=== PATIENT | male | born 1950 | race Caucasian/White ===

== ENCOUNTER 2021-06-26 15:29 | Emergency (ER) | payer BC, SELFPAY ==
[2021-06-26 15:39] VITALS: BP 144/76; PULSE 70; RESP 18; TEMP 36.9; O2SAT 99
--- NOTE | 2021-06-26 15:45 | ED.SKABFB ---
HPI - Skin/Abscess/Foreign Bdy General Chief complaint: Skin/Abscess/Foreign Body Stated complaint: Cuts Lt Leg Time Seen by Provider: 06/26/21 15:40 Source: patient, RN notes reviewed and old records reviewed Mode of arrival: ambulatory Limitations: no limitations History of Present Illness HPI narrative: 70-year-old male presents to the [facility] with a scabbed over red warm area to the anterior portion of his left patel. Patient states he was doing yard work when he scraped his patel on his mower. States the injury happened 2 days ago on Tuesday. States that he cleaned it with warm soapy water and poured peroxide over it. Woke up this morning it was red, warm and swollen. Patient has a history of diabetes. Unsure of last tetanus, per medical record August 26, 2015. Patient reports his sugars have been in the low 100s. Has a history of diabetes, high cholesterol, hypertension. MD complaint: lesion Related Data Home Medications Medication Instructions Recorded Confirmed blood sugar diagnostic #10 each 07/25/19 chlorthalidone 12.5 mg PO DAILY 06/26/21 06/26/21 fenofibrate 160 mg PO DAILY 06/26/21 06/26/21 glyburide 10 mg PO DAILY 06/26/21 06/26/21 linagliptin [Tradjenta] 5 mg PO DAILY 06/26/21 06/26/21 metformin 1,000 mg PO BID 06/26/21 06/26/21 Allergies Allergy/AdvReac Type Severity Reaction Status Date / Time No Known Allergies Allergy Verified 06/26/21 16:07 Review of Systems Review of Systems: All systems reviewed & are unremarkable except as noted in HPI and below Constitutional: Constitutional: Reports no additional constitutional complaints, Denies chills and Denies fever(s) Eyes: Eyes: Reports no additional eye complaints Cardiovascular: Cardiovascular: Reports no additional cardiovascular complaints Respiratory: Respiratory: Reports no additional respiratory complaints Musculoskeletal: Musculoskeletal: Reports no additional musculoskeletal complaints Integumentary/Breasts: Skin/Breast: Reports as per HPI and Reports erythema Neurologic: Reports system reviewed and no additional complaints, except as documented Psychiatric: Psychiatric: Reports no additional psychiatric complaints Allergic/Immunologic: Allergic/Immunologic: Reports no additional allergic/immunologic complaints PMFSH Past Medical History Medical History (Updated 06/26/21 @ 19:03 by Aisha Herr) DM neuro manif type II Essential (primary) hypertension Peripheral polyneuropathy Pure hypercholesterolemia Type 2 diabetes mellitus with hyperglycemia Family History Family History Sibling Patient's sister is in good health Patient's brother is in good health Family history of diabetes mellitus in first degree relative Social History Social History Smoking packs per day: 0.5 Smoking cigarettes per day: 10.0 Years smoked: 50 Smoking pack-years: 25.00 Smoking status: Current every day smoker Tobacco type: cigarettes Second hand tobacco smoke exposure: No Alcohol intake: current Drinks per week: 7 Substance use: never Substance use type: does not use Gender identity (if verbalized by the patient): Male Comments At the time of my signature, I reviewed and agree with the nursing past medical, surgical, social, and family history. There is no relevant family history pertinent to the patient complaint. Exam Const: General: healthy appearing, no acute distress and alert Nutritional Appearance: well nourished Orientation/consciousness: patient oriented x3 Limitations: no limitations HENMT: Head: normal to inspection Ears: external ears normal Eyes: Pupils: Equal, round and reactive pupils present Neck: Neck: normal visual inspection, no lymphadenopathy and no meningeal signs Chest: Chest palpation & inspection: normal inspection of the chest Resp: Effort & Inspection: normal respiratory effor
[2021-06-26] MEDS: TETANUS,DIPHTHERIA,AC PERTUSSIS ADULT (0.5 ML) BOOSTRIX IM (16:05)
== END 2021-06-26 16:25 | disposition home or self-care (01) ==
PROVIDERS: Emergency Provider Nurse Practitioner; PCP Family Medicine
DX: L03.116 Cellulitis of left lower limb (principal); Z23 Encounter for immunization; F17.210 Nicotine dependence, cigarettes, uncomplicated; I10 Essential (primary) hypertension; E11.42 Type 2 diabetes mellitus with diabetic polyneuropathy; E78.00 Pure hypercholesterolemia, unspecified
CPT/HCPCS: 90471; 90715; 99213; G0463

== ENCOUNTER 2021-12-18 16:33 | Outpatient (CLI) | payer BC, SELFPAY ==
--- NOTE | ~2021-12-18 | MR_ITS ---
EXAMINATION: MR lumbar spine wo con DATE: 12/18/2021 17:48 INDICATION: Spinal stenosis, lumbar region without neurogenic claudication. TECHNIQUE: Magnetic resonance imaging (MRI) of the lumbar spine was performed without intravenous con trast. Sequences included sagittal T2-weighted FSE, sagittal T2-weighted FS FSE, sagittal T1-weighted FSE, and axial T2-weighted FSE. COMPARISON: Lumbar spine MRI 08/19/2017 FINDINGS: There is 5 degrees dextrocurvature of thoracolumbar spine. There is kyphosis of upper lumba r spine. There is 3 mm retrolisthesis of L2 on L3. There is mild chronic anterior wedging of L1 verte bral body. There are Schmorl's nodes at most levels. There is mildly decreased disc height at L1-L2, severely decreased disc height at L2-L3, and moderately decreased disc height at L4-L5 and L5-S1 with endplate remodeling. The distal spinal cord signal intensity is normal. The conus medullaris is at T 12-L1. The following disc levels are specifically discussed: L1-L2: The disc is bulging and has an annular fissure. There is mild bilateral facet joint osteoarthr itis. There is mild left neural foraminal stenosis. There is mild central canal stenosis. L2-L3: The disc is bulging as an annular fissure. There is mild bilateral facet joint osteoarthritis. There is mild right and moderate left neural foraminal stenosis. There is mild central canal stenosi s. L3-L4: The disc is bulging and has an annular fissure. There is severe bilateral facet joint osteoart hritis. There is hypertrophy of the ligamentum flavum. There is moderate bilateral neural foraminal s tenosis. There is moderate central canal stenosis. L4-L5: The disc is bulging and has an annular fissure. There is severe bilateral facet joint osteoart hritis. There is moderate bilateral neural foraminal stenosis. There is mild central canal stenosis. L5-S1: The disc is bulging and has an annular fissure. There is severe right and moderate left facet joint osteoarthritis. There is moderate bilateral neural foraminal stenosis. There is mild central ca nal stenosis. IMPRESSION: 1. Severe lumbar spondylosis, worsened from 08/19/2017. Reviewed, dictated and finalized at location A.
== END 2021-12-18 16:34 | disposition home or self-care (01) ==
PROVIDERS: PCP Family Medicine; Visit Provider Family Medicine
DX: M48.061 Spinal stenosis, lumbar region without neurogenic claudication (principal); M47.816 Spondylosis without myelopathy or radiculopathy, lumbar region
CPT/HCPCS: 72148

== ENCOUNTER 2022-01-27 01:10 | Day surgery (SDC) | payer BC, SELFPAY ==
[2022-01-15 13:54] VITALS: BMI 28.5
--- NOTE | 2022-01-26 17:22 | PM.HPGS ---
History of Present Illness History of Present Illness Consent: Risks, benefits, and alternatives have been discussed and questions answered. Patient agrees to proceed with procedure. Chief complaint: hx of colon polyps Narrative: Jaskaran Smith is a 71 year old male With a history of colon polyps he had 7 polyps removed about 5 years ago. According to the report, the endoscopist was not able to remove all the polyps that he found due to the patient coughing. Subsequently he had another procedure elsewhere with removal of additional polyps. Review of Systems Review of Systems: All systems reviewed & are unremarkable except as noted in HPI and below PMFSH Past Medical History Medical History DM neuro manif type II Essential (primary) hypertension Peripheral polyneuropathy Pure hypercholesterolemia Type 2 diabetes mellitus with hyperglycemia Family History Family History Sibling Patient's sister is in good health Patient's brother is in good health Family history of diabetes mellitus in first degree relative Social History Social History Social History: Smoking packs per day: 0.5 Smoking cigarettes per day: 10.0 Years smoked: 40 Smoking pack-years: 20.00 Smoking status: Current every day smoker Tobacco type: cigarettes Second hand tobacco smoke exposure: No Alcohol intake: current Drinks per week: 7 Substance use: never Substance use type: does not use Living arrangements: with family Gender identity (if verbalized by the patient): Male Sexual Orientation (if Verbalized by the Patient): Straight or Heterosexual Meds Home Medications and Allergies Home Medications Medication Instructions Recorded Confirmed Type blood sugar diagnostic #10 ea 07/25/19 01/27/22 History quinapril 40 mg tablet (Accupril) 40 mg PO DAILY #90 tabs 10/31/20 01/27/22 Rx glyburide 5 mg tablet 10 mg PO DAILY 06/26/21 01/27/22 History metformin 1,000 mg tablet 1,000 mg PO BID #180 tabs 07/21/21 01/27/22 Rx atorvastatin 20 mg tablet (Lipitor) 20 mg PO DAILY #90 tabs 10/28/21 01/27/22 Rx amlodipine 10 mg tablet See Rx Instructions .Route 12/21/21 01/27/22 Rx .COMPLEX #90 tabs chlorthalidone 25 mg tablet See Rx Instructions .Route 12/21/21 01/27/22 Rx .COMPLEX #45 tabs empagliflozin 25 mg tablet See Rx Instructions .Route 12/21/21 01/27/22 Rx (Jardiance) .COMPLEX #90 tabs fenofibrate 160 mg tablet See Rx Instructions .Route 12/21/21 01/27/22 Rx .COMPLEX #90 tabs linagliptin 5 mg tablet (Tradjenta) 5 mg PO DAILY #90 tabs 12/21/21 01/27/22 Rx Allergies Allergy/AdvReac Type Severity Reaction Status Date / Time No Known Allergies Allergy Verified 01/27/22 07:27 Exam Resp: Auscultation: clear to auscultation bilaterally Cardio: Rate: regular rate Rhythm: regular rhythm GI: GI Palp: Yes Soft to palpation and No Tenderness to palpation present (GI) Assessment and Plan Assessment and plan (1) Colon cancer screening: Code(s): Z12.11 - Encounter for screening for malignant neoplasm of colon Status: Acute Assessment and Plan: Colonoscopy with possible biopsy or polypectomy or cautery or injection of substances.
[2022-01-27 07:29] VITALS: BP 137/85; PULSE 64; RESP 18; TEMP 36.4; O2SAT 97
[2022-01-27 07:29] LABS: Glucose Point of Care 193 mg/dl (65-105)
[2022-01-27] MEDS: LACTATED RINGERS 1,000 ML 150 ML IV CONT (07:37)
--- NOTE | 2022-01-27 08:10 | WPDANESEPPF ---
Anes - Initial Pre Proc Eval Procedure: Operation Date: 01/27/22 08:30 Proposed Procedures p Screening Colonoscopy - Perez Mari MD Date/Time: 01/27/22 08:10 Surgeon: Perez Mari MD Pre Op Diagnosis: hx of colon polyps Patient Data Age: 71 Gender: M Height: 1.83 m Weight: 94.8 kg Last Vital Signs Temp 97.6 F 01/27/22 07:29 Pulse 64 01/27/22 07:29 Resp 18 01/27/22 07:29 BP 137/85 01/27/22 07:29 Pulse Ox 97 01/27/22 07:29 O2 Del Method Room Air 01/27/22 07:29 Allergies Allergy/AdvReac Type Severity Reaction Status Date / Time No Known Allergies Allergy Verified 01/27/22 07:27 Home Medications Medication Instructions Recorded Confirmed Type blood sugar diagnostic #10 ea 07/25/19 01/27/22 History quinapril 40 mg tablet (Accupril) 40 mg PO DAILY #90 tabs 10/31/20 01/27/22 Rx glyburide 5 mg tablet 10 mg PO DAILY 06/26/21 01/27/22 History metformin 1,000 mg tablet 1,000 mg PO BID #180 tabs 07/21/21 01/27/22 Rx atorvastatin 20 mg tablet (Lipitor) 20 mg PO DAILY #90 tabs 10/28/21 01/27/22 Rx amlodipine 10 mg tablet See Rx Instructions .Route 12/21/21 01/27/22 Rx .COMPLEX #90 tabs chlorthalidone 25 mg tablet See Rx Instructions .Route 12/21/21 01/27/22 Rx .COMPLEX #45 tabs empagliflozin 25 mg tablet See Rx Instructions .Route 12/21/21 01/27/22 Rx (Jardiance) .COMPLEX #90 tabs fenofibrate 160 mg tablet See Rx Instructions .Route 12/21/21 01/27/22 Rx .COMPLEX #90 tabs linagliptin 5 mg tablet (Tradjenta) 5 mg PO DAILY #90 tabs 12/21/21 01/27/22 Rx Laboratory Tests 01/27/22 07:24 POC Capillary Glucose 193 mg/dl H mg/dl (65-105) Patient hx anesthesia problems: none Family hx anesthesia problems: none Results Review: All pre-operative results and documents have been reviewed as part of the pre-operative evaluation. [facility] Past Medical History Medical History DM neuro manif type II Essential (primary) hypertension Peripheral polyneuropathy Pure hypercholesterolemia Type 2 diabetes mellitus with hyperglycemia Family History Family History Sibling Patient's sister is in good health Patient's brother is in good health Family history of diabetes mellitus in first degree relative Social History Social History Social History: Smoking packs per day: 0.5 Smoking cigarettes per day: 10.0 Years smoked: 40 Smoking pack-years: 20.00 Smoking status: Current every day smoker Tobacco type: cigarettes Second hand tobacco smoke exposure: No Alcohol intake: current Drinks per week: 7 Substance use: never Substance use type: does not use Living arrangements: with family Gender identity (if verbalized by the patient): Male Sexual Orientation (if Verbalized by the Patient): Straight or Heterosexual Anes - Eval Final PreProcedure Day of Procedure 01/27/22 08:10 Patient weight: normal Heart: regular rate and rhythm Lungs: clear to auscultation Airway: Mallampati scale class II Neurological: alert and oriented Last oral intake: >/= 8 hours ASA classification: III Emergent: no Anesthetic plan: proceed Anesthesia type and monitoring: general GIVS and standard monitoring Results Review: All pre-operative results and documents have been reviewed as part of the pre-operative evaluation. Informed Consent: The patient's anesthetic plan and its attendant risks and benefits were discussed with the patient/family/POA. Questions were solicited and answers provided to the satisfaction of the patient/family/POA.
[2022-01-27 08:52] VITALS: BP 130/65; PULSE 62; RESP 20; O2SAT 97
[2022-01-27 09:02] VITALS: BP 133/64; PULSE 64; RESP 20; O2SAT 98
[2022-01-27 09:12] VITALS: BP 113/93; PULSE 62; RESP 21; O2SAT 97
== END 2022-01-27 09:35 | disposition home or self-care (01) ==
PROVIDERS: PCP Family Medicine; Visit Provider Internal Medicine Gastroenterology
PROC: 0DJD8ZZ Inspection of Lower Intestinal Tract, Via Natural or Artificial Opening Endoscopic (ICD-10-PCS; CPT 45378; principal; 2022-01-27 08:30)
DX: Z12.11 Encounter for screening for malignant neoplasm of colon (principal); D12.2 Benign neoplasm of ascending colon; D12.4 Benign neoplasm of descending colon; D12.5 Benign neoplasm of sigmoid colon; K57.30 Diverticulosis of large intestine without perforation or abscess without bleeding; I10 Essential (primary) hypertension; E11.42 Type 2 diabetes mellitus with diabetic polyneuropathy; E78.00 Pure hypercholesterolemia, unspecified; F17.210 Nicotine dependence, cigarettes, uncomplicated
CPT/HCPCS: 45385; 82948; 88305; J2704; J7120

== ENCOUNTER 2022-11-10 13:45 | Outpatient (CLI) | payer BC, SELFPAY ==
--- NOTE | ~2022-11-10 | XR_ITS ---
MODIFIED ESOPHAGRAM HISTORY: Acute respiratory failure with hypoxia. Dysphagia post recent neck surgery. TECHNIQUE: Modified barium esophagram was performed on 11/10/2022. I administered fluoroscopy and perfo rmed the exam with speech pathologist. Patient was seated for lateral fluoroscopic imaging for inges tion of thin liquids, pudding, solids and quantified amounts, followed by thin liquids in uncontrolle d amounts. This was recorded on tape. A single fluoroscopic spot image was also recorded. The DAP for this procedure was 0.669 Gycm2. The amount of fluoroscopy time used during this procedure was 1.1 mi nutes. FINDINGS: C5 corpectomy with interbody device and anterior plate and screw fixation extending from C4 through C 6. Oral stage: Adequate function. Pharyngeal stage: Pharyngeal dysphagia including reduced laryngeal elevation and adduction, reduced t ongue base retraction and pharyngeal squeeze. There is significant residue along the pharyngeal wall, the vallecula and piriform sinuses. Laryngeal penetration and significant aspiration noted with both thick and thin consistencies. Cervical/esophageal stage: Adequate function. IMPRESSION: Pharyngeal dysphagia with significant laryngeal penetration and aspiration with thin and thick consistencies. Please correlate with speech pathologist findings and specific feeding recommen dations. Reviewed, dictated and finalized at location A. TATION OPERATOR HELPER IMPRESSION: Pharyngeal dysphagia with significant laryngeal penetration and asp iration with thin and thick consistencies. Please correlate with speech pathol ogist findings and specific feeding recommendations.
--- NOTE | 2022-11-10 15:15 | REHSTMBS ---
Assessment and note entered by Melanie Ibarra WEB MARKETING MANAGER Modified Barium Swallow Evaluation Feeding Type Recommended Non-Oral ST Clinical Summary MODIFIED BARIUM SWALLOW STUDY (MBS) This patient was seen for an outpatient Modified Barium Swallow study at the request of his physician. Patient reports a cervical surgery on C4 through C6 with removal of C5 with another material in place of C5 to remove build- up against the spine. He reports that he has not been able to consume food or drink orally since then. He states that he feels he is able to swallow but he is not eating now because he failed a MBS study at [facility] on 10/20/22 and was told he can no longer consume food and drink. He reports he has had Speech Therapy with a speech pathologist through his local home health agency but she stopped coming out to the house several weeks ago. He does recognize that liquid goes down the wrong pipe, assumed that he has tried it since then. During this assessment, patient was presented with one presentation of 1/2 teaspoon thin liquid and two small bites of pudding, both consistencies contributed to significant pharyngeal pooling resulting in need for multiple swallows to clear however this was not effective in clearing residual. He also exhibited significant penetration with aspiration on the small amount of thin liquid and the slightly larger amount of pudding material. Testing was terminated after two significant episodes of penetration/aspiration were observed. The following impairments were noted: Oral Stage: None. Pharyngeal Stage: *Reduced base of tongue retraction contributing to poor epiglottal inversion resulting in significant pharyngeal residue and poor airway closure. *Reduced laryngeal elevation as demonstrated by poor epiglottal inversion contributing to penetration/aspiration and significant pharyngeal residue possibly due to reduced upper esophageal sphincter (UES) opening.
--- NOTE | 2022-11-11 12:05 | REHSTMBS ---
Assessment and note entered by Melanie Ibarra PLANT EQUIPMENT ENGINEER Modified Barium Swallow Evaluation Feeding Type Recommended Non-Oral ST Clinical Summary MODIFIED BARIUM SWALLOW STUDY (MBS) This patient was seen for an outpatient Modified Barium Swallow study at the request of his physician. Patient reports a cervical surgery on C4 through C6 with removal of C5 with another material in place of C5 to remove build- up against the spine. He reports that he has not been able to consume food or drink orally since then. He states that he feels he is able to swallow but he is not eating now because he failed a MBS study at [facility] on 10/20/22 and was told he can no longer consume food and drink. He reports he has had Speech Therapy with a speech pathologist through his local home health agency but she stopped coming out to the house several weeks ago. He does recognize that liquid goes down the wrong pipe, assumed that he has tried it since then. During this assessment, patient was presented with one presentation of 1/2 teaspoon thin liquid and two small bites of pudding, both consistencies contributed to significant pharyngeal pooling resulting in need for multiple swallows to clear however this was not effective in clearing residual. He also exhibited significant penetration with aspiration on the small amount of thin liquid and the slightly larger amount of pudding material. Testing was terminated after two significant episodes of penetration/aspiration were observed. The following impairments were noted: Oral Stage: None. Pharyngeal Stage: *Reduced base of tongue retraction contributing to poor epiglottal inversion resulting in significant pharyngeal residue and poor airway closure. *Reduced laryngeal elevation as demonstrated by poor epiglottal inversion contributing to penetration/aspiration and significant pharyngeal residue possibly due to reduced upper esophageal sphincter (UES) opening.
== END 2022-11-10 13:46 | disposition home or self-care (01) ==
PROVIDERS: PCP Family Medicine
DX: J96.01 Acute respiratory failure with hypoxia (principal); G95.9 Disease of spinal cord, unspecified
CPT/HCPCS: 92611

== ENCOUNTER 2025-06-19 02:15 | Day surgery (SDC) | payer MEDICARE, SELFPAY ==
[2025-06-10 13:36] VITALS: BMI 25.1
[2025-06-19 07:53] VITALS: BP 134/87; PULSE 80; RESP 18; TEMP 36.4; O2SAT 94
[2025-06-19] MEDS: LACTATED RINGERS 1,000 ML 150 ML IV CONT (08:08)
--- NOTE | 2025-06-19 08:16 | ECG_ITS ---
Test Date: 2025-06-19 08:32:13 Measurements Intervals Roland Rate: 62 P: 55 WI: 213 QRS: -65 QRSD: 134 T: 72 QT: 410 QTc: 419 Interpretive Statements SINUS RHYTHM WITH FIRST DEGREE AV BLOCK WITH ATRIAL AND VENTRICULAR PREMATURE COMPLEXES INTRAVENTRICULAR CONDUCTION DELAY POOR R WAVE PROGRESSION BASELINE ARTIFACT- I, II, III, AVR, AVL, AVF, V1-V3 ABNORMAL ECG No previous ECG available for comparison Electronically Signed On 06-19-2025 09:10:54 CDT by Tigre Swift D.O.
--- NOTE | 2025-06-19 08:18 | P.PNAN_ITS ---
Anes - Initial Pre Proc Eval Procedure: Operation Date: 06/19/25 09:00 Proposed Procedures p Screening Colonoscopy - Paul Mary MD Date/Time: 06/19/25 08:18 Surgeon: Paul Mary MD Pre Op Diagnosis: Personal history of colon polyps, unspecified Patient Data Age: 74 Gender: M Height: 1.83 m Weight: 87.1 kg Last Vital Signs Temp 97.6 F 06/19/25 07:53 Pulse 80 06/19/25 07:53 Resp 18 06/19/25 07:53 BP 134/87 06/19/25 07:53 Pulse Ox 94 06/19/25 07:53 O2 Del Method Room Air 06/19/25 07:53 Allergies Allergy/AdvReac Type Severity Reaction Status Date / Time No Known Allergies Allergy Verified 06/19/25 07:51 Home Medications ?Medication ?Instructions ?Recorded ?Confirmed ?Type blood sugar diagnostic #10 ea 07/25/19 01/30/25 His tory atorvastatin 20 mg tablet See Rx Instructions .Route 0 09/27/24 06/19/25 Rx .COMPLEX #90 tabs metformin 1,000 mg tablet See Rx Instructions .Route 0 09/27/24 06/19/25 Rx .COMPLEX #180 tabs amlodipine 10 mg tablet See Rx Instructions .Route 0 11/14/24 06/19/25 Rx .COMPLEX #90 tabs empagliflozin 25 mg tablet See Rx Instructions .Route 11/14/24 06/19/25 Rx (Jardiance) .COMPLEX #90 tabs fenofibrate 160 mg tablet See Rx Instructions .Route 0 11/14/24 06/19/25 Rx .COMPLEX #90 tabs sitagliptin phosphate 100 mg 100 mg PO DAILY #90 tabs 11/14/24 06/19/25 Rx tablet (Januvia) chlorthalidone 25 mg tablet See Rx Instructions .Route 05/10/25 06/19/25 Rx .COMPLEX #45 tabs glyburide 5 mg tablet 2.5 mg PO DAILY 06/10/25 History Laboratory Tests 06/19/25 07:59 POC Capillary Glucose 156 H mg/dl (65-105) Patient hx anesthesia problems: none Family hx anesthesia problems: none Results Review: All pre-operative results and documents have been reviewed as part of the pre- operative evaluation. [facility] Past Medical History Medical History (Updated 06/19/25 @ 08:20 by Eduardo Rockwell Jr., CRNA) Over weight Smoking history History of colon polyps Smoking Afib At high risk for aspiration DM neuro manif type II Essential (primary) hypertension Peripheral polyneuropathy Pure hypercholesterolemia Type 2 diabetes mellitus with hyperglycemia Family History Family History Sibling Patient's sister is in good health Patient's brother is in good health Family history of diabetes mellitus in first degree relative Social History Social History Social History: Smoking packs per day: 0.5 Smoking cigarettes per day: 10.0 Years smoked: 40 Smoking pack-years: 20.00 Smoking status: Current every day smoker Tobacco type: cigarettes Second hand tobacco smoke exposure: No Alcohol intake: current Drinks per week: 7 Substance use: never Substance use type: does not use Living arrangements: with family Occupation/Education: occupation Gender identity (if verbalized by the patient): Male Sexual Orientation (if Verbalized by the Patient): Straight or Heterosexual Anes - Eval Final PreProcedure Day of Procedure 06/19/25 08:18 Patient weight: overweight Heart: irregular rhythm Lungs: clear to auscultation Airway: Mallampati scale class II Last oral intake: >/= 8 hours ASA classification: III Emergent: no Anesthetic plan: proceed Anesthesia type and monitoring: general GIVS and standard monitoring Results Review: All pre-operative results and documents have been reviewed as part of the pre- operative evaluation. Informed Consent: The patient's anesthetic plan and its attendant risks and benefits were discussed with the patient/family/POA. Questions were solicited and answers provided to the satisfaction of the patient/family/POA.
--- NOTE | 2025-06-19 08:28 | SUR.PREOP ---
Per pulse ox, HR fluctuates from 30-100s. Per palpation, HR 50s with some long pauses. Rhythm strip printed and given to Dr. Garza. New orders for 12 Lead EKG received. Pt states no cardiac hx. Will continue with 12 Lead EKG.
--- NOTE | 2025-06-19 08:38 | ECG_ITS ---
Test Date: 2025-06-19 08:41:25 Measurements Intervals [place] Rate: 75 P: 62 OH: 213 QRS: -67 QRSD: 128 T: 66 QT: 414 QTc: 463 Interpretive Statements SINUS RHYTHM WITH FIRST DEGREE AV BLOCK WITH OCCASIONAL VENTRICULAR PREMATURE COMPLEXES LEFT ANTERIOR FASCICULAR BLOCK BASELINE ARTIFACT- I, II, III, AVR, AVL, AVF ABNORMAL ECG Compared to ECG 06/19/2025 08:32:13 NO SIGNIFICANT CHANGE Electronically Signed On 06-19-2025 09:11:43 CDT by Tigre Swift D.O.
--- NOTE | 2025-06-19 08:47 | SUR.PREOP ---
Irregular heart rate reported in pre-op. Patients heart rate ranging from 30-100 on vitals monitor, and at 50 with long pauses manually. Notified Dr. Garza. Per Dr. Garza obtain 12 lead EKG. EKG obtained and transmitted. Dr. Garza to evaluate.
--- NOTE | 2025-06-19 09:08 | PM.IMHP ---
H&P: HPI History of Present Illness Date/Time: 06/19/25 09:08 Chief Complaint: History of colon polyps Narrative: The patient has a history of colonic polyps, the last colonoscopy was more than 5 years ago. Review of Systems Review of Systems: All systems reviewed & are unremarkable except as noted in HPI and below PMFSH Past Medical History Medical History (Updated 06/19/25 @ 08:20 by Eduardo Rockwell Jr., CRNA) Over weight Smoking history History of colon polyps Smoking Afib At high risk for aspiration DM neuro manif type II Essential (primary) hypertension Peripheral polyneuropathy Pure hypercholesterolemia Type 2 diabetes mellitus with hyperglycemia Family History Family History Sibling Patient's sister is in good health Patient's brother is in good health Family history of diabetes mellitus in first degree relative Social History Social History Social History: Smoking packs per day: 0.5 Smoking cigarettes per day: 10.0 Years smoked: 40 Smoking pack-years: 20.00 Smoking status: Current every day smoker Tobacco type: cigarettes Second hand tobacco smoke exposure: No Alcohol intake: current Drinks per week: 7 Substance use: never Substance use type: does not use Living arrangements: with family Occupation/Education: occupation Gender identity (if verbalized by the patient): Male Sexual Orientation (if Verbalized by the Patient): Straight or Heterosexual Meds Home Medications and Allergies Home Medications ?Medication ?Instructions ?Recorded ?Confirmed ?Type blood sugar diagnostic #10 ea 07/25/19 01/30/25 History atorvastatin 20 mg tablet See Rx Instructions .Route 09/27/24 06/19/25 Rx .COMPLEX #90 tabs metformin 1,000 mg tablet See Rx Instructions .Route 09/27/24 06/19/25 Rx .COMPLEX #180 tabs amlodipine 10 mg tablet See Rx Instructions .Route 11/14/24 06/19/25 Rx .COMPLEX #90 tabs empagliflozin 25 mg tablet See Rx Instructions .Route 11/14/24 06/19/25 Rx (Jardiance) .COMPLEX #90 tabs fenofibrate 160 mg tablet See Rx Instructions .Route 11/14/24 06/19/25 Rx .COMPLEX #90 tabs sitagliptin phosphate 100 mg 100 mg PO DAILY #90 tabs 11/14/24 06/19/25 Rx tablet (Januvia) chlorthalidone 25 mg tablet See Rx Instructions .Route 05/10/25 06/19/25 Rx .COMPLEX #45 tabs glyburide 5 mg tablet 2.5 mg PO DAILY 06/10/25 06/19/25 History Allergies Allergy/AdvReac Type Severity Reaction Status Date / Time No Known Allergies Allergy Verified 06/19/25 07:51 Vital Signs Vital Signs - 24 hr 06/19/25 07:53 Temperature 97.6 F Pulse Rate 80 Respiratory Rate 18 Blood Pressure 134/87 Pulse Oximetry 94 Oxygen Delivery Room Air Exam Const: General: cooperative and healthy appearing Resp: Effort & Inspection: normal respiratory effort and able to speak in complete sentences Auscultation: clear to auscultation bilaterally Cardio: Rate: regular rate Rhythm: regular rhythm GI: Inspection: normal to inspection GI Palp: No No hepatosplenomegaly present Auscultation: normal bowel sounds Rectal Exam: deferred Skin: General skin exam: normal color Psych: Appearance: grossly normal Mental Status: mental status grossly normal Assessment and Plan Assessment and plan (1) History of colon polyps: Code(s): Z86.010 - Personal history of colon polyps Status: Acute Assessment and Plan: The patient is deemed a good candidate for the procedure. Consent signed. Will proceed.
--- NOTE | 2025-06-19 09:41 | S_PTH ---
PATIENT: Jaskaran Smith LOC: [facility] U#:[id number] AGE/SX: 74/M ROOM: RE06/19/[address]: Paul Mary MD : 1950 BED: DIS: 06/19/2025 SPEC #: [id number] RECD: 06/19/25 10:42 STATUS: NICOLAS REQ #: [id number] ROCHELLE: 06/19/25 09:[address]: Paul Mary DEPT: [facility] Surgical RECD BY: Zuleyka Welch ENTERED: 06/19/25 10:43 SP TYPE: Surgical OTHR DR: José Vogel MD Tissues: A - Colon Polypectomy B - Colon Biopsy Procedures: Hematoxylin and Eosin Stain Gross and Microscopic Level 4 MLH1 MSH2 MSH6 PMS2
[2025-06-19 09:43] VITALS: BP 106/67; PULSE 67; RESP 21; O2SAT 93
[2025-06-19 09:53] VITALS: BP 113/75; PULSE 63; RESP 22; O2SAT 98
== END 2025-06-19 10:22 | disposition home or self-care (01) ==
PROVIDERS: PCP Family Medicine; Referring Provider Family Medicine; Visit Provider Internal Medicine Gastroenterology
PROC: 0DJD8ZZ Inspection of Lower Intestinal Tract, Via Natural or Artificial Opening Endoscopic (ICD-10-PCS; CPT 45378; principal; 2025-06-19 09:00)
DX: Z12.11 Encounter for screening for malignant neoplasm of colon (principal); C18.0 Malignant neoplasm of cecum; D12.5 Benign neoplasm of sigmoid colon; I10 Essential (primary) hypertension; E11.65 Type 2 diabetes mellitus with hyperglycemia; E78.00 Pure hypercholesterolemia, unspecified; I48.91 Unspecified atrial fibrillation; F17.210 Nicotine dependence, cigarettes, uncomplicated; G62.89 Other specified polyneuropathies; Z79.84 Long term (current) use of oral hypoglycemic drugs
CPT/HCPCS: 45380; 45381; 45385; 82948; 88305; 88342; 93005; J2003; J2704; J7120

== ENCOUNTER 2025-06-20 13:06 | Outpatient (CLI) | payer MEDICARE, SELFPAY ==
--- NOTE | ~2025-06-20 | CT_ITS ---
EXAMINATION: CT chest abdomen pelvis w con DATE: 06/20/2025 13:42 INDICATION: Personal history of colon polyps TECHNIQUE: Computed tomography (CT) of the chest, abdomen, and pelvis was performed with 100 mL Omnipaque-350 intravenous contrast. Automated exposure control and iterative reconstruction technique were employed. The dose-length product was 928.26 mGy-cm. COMPARISON: CT abdomen and pelvis dated 09/15/2011 FINDINGS: CHEST CT: Mild emphysema. There are scattered peripheral mild reticular and tree-in-bud opacities in both lungs. No pleural effusion or pneumothorax. Heart size is normal. Atherosclerotic coronary artery calcifications. No pericardial effusion. Thoracic aorta normal in caliber with no dissection. No pathologically enlarged thoracic lymphadenopathy. Moderate to severe thoracic spondylosis. Incompletely visualized instrumentation at C6 for likely for cervical anterior spinal fusion. ABDOMEN/PELVIS CT: Diffuse hepatic steatosis with more focal fat at the ligamentum teres. Gallbladder, spleen, pancreas and bilateral adrenal glands are normal. 2.4 similar exophytic cyst at the lower pole of the right kidney. Subcentimeter cyst at the upper pole the left kidney. Bladder is normal. Bowels including the a ppendix are normal. There is calcified atherosclerosis of the aorta and many of the other arteries. No free intraperitoneal gas or fluid. No pathologically enlarged abdominal or pelvic lymphadenopathy. Moderate to severe lumbar spondylosis. IMPRESSION: 1. Mild emphysema with peripheral reticular and tree-in-bud opacities throughout both lungs which could represent infectious bronchiolitis or respiratory bronchiolitis interstitial lung disease. 2. No acute intra-abdominal/pelvic process. 3. Diffuse hepatic steatosis. Reviewed, dictated and finalized at location A. IMPRESSION: 1. Mild emphysema with peripheral reticular and tree-in-bud opacities throughou t both lungs which could represent infectious bronchiolitis or respiratory bron chiolitis interstitial lung disease. 2. No acute intra-abdominal/pelvic process. 3. Diffuse hepatic steatosis.
[2025-06-20 13:33] LABS: Estimated Glomerular Filt Rate > 60
--- OUTSIDE RECORDS SUMMARY | 2025-06-20 14:58 | XMS_ITS | Clinical Summary ---
Author Organization [facility] Address [facility] [place] [address] Care Team Providers Care Cooperative Education Coordinator Name Role Phone José Vogel MD Primary Care Provider [phone] Active Problems Problem Noted Date Diagnosed Date Cervical myelopathy 11/29/2022 Social History Tobacco Use Types Packs/Day Years Used Date Smoking Tobacco: Never Assessed Sex and Gender Information Value Date Recorded Sex Assigned at Not on file Legal Sex Male 5:38 PM CDT Gender Identity Not on file Sexual Orientation Not on file Plan of Treatment Health Maintenance Due Date Last Done Comments Hepatitis C 1966 Zoster Vaccines (1 of 2) 1998 Pneumococcal Vaccine: 50+ Years (2 of 2 - PPSV23) 06/10/2022 06/10/2021 RSV Immunization or 60+ Years (1 - 1-dose 75+ series) 2023 COVID-19 Vaccine ( season) 2025 07/22/2021, 11/23/2020, 11/02/2020 Influenza Adult (#1) 2025 06/12/2019, 07/08/2018, 07/07/2018, Additional history exists DTaP, Tdap and Td Vaccines (3 - Td or Tdap) 06/26/2031 06/26/2021, 08/26/2015 Meningococcal B Vaccine Aged Out No l onger eligible based on patient's age to complete this topic Meningococcal Vaccine Aged Out No juanita frida eligible based on patient's age to complete this topic RSV Immunizations Under 20 Months Aged Out No longer eligible based on patient's age to complete this topic Insurance [facility] Care Teams Cooperative Education Coordinator Relationship Specialty Start Date End Date José Vogel MD [address] [place] [address] PCP - General FAMILY PRACTICE 11/19/22
--- OUTSIDE RECORDS SUMMARY | 2025-06-20 14:58 | XMS_ITS | Clinical Summary ---
Author Organization [facility] Address [address] [address] Care Team Providers Care Manager Company Name Role Phone José Vogel MD Primary Care Provider Allergies No known active allergies Medications BetimoL 0.5 % ophthalmic solutionIndicat ions:glaucoma Administer 1 drop into both eyes 2 (two) times a day 2 Active chlorthalidone 25 mg tabletIndicatio ns:hypertension Administer per tube 1 tablet (25 mg total) every morning 3 Active glyBURIDE (DIABETA) 5 mg tabletIndicatio ns:type 2 diabetes mellitus Administer per tube 1 tablet (5 mg total) daily before breakfast 3 Active Jardiance 25 mg tabletIndicatio ns:type 2 diabetes mellitus Administer per tube 1 tablet (25 mg total) every morning 3 Active metFORMIN (GLUCOPHAGE) 1,000 mg tabletIndicatio ns:type 2 diabetes mellitus Administer per tube 1 tablet (1,000 mg total) 2 (two) times a day 3 Active Tradjenta 5 mg tabletIndicatio ns:type 2 diabetes mellitus Administer per tube 1 tablet (5 mg total) every morning 3 Active amLODIPine (NORVASC) 10 mg tabletIndicatio ns:hypertension Administer per tube 1 tablet (10 mg total) daily 3 Active atorvastatin (LIPITOR) 20 mg tabletIndicatio ns:hyperlipidem ia Administer per tube 1 tablet (20 mg total) every morning 3 Active fenofibrate (TRIGLIDE) 160 mg tabletIndicatio ns:hyperlipidem ia Administer per tube 1 tablet (160 mg total) every morning 3 Active acetaminophen 500 mg capsule Administer per tube 2 capsules (1,000 mg total) every 6 (six) hours as needed for pain 30 tablet 3 Active Additional Information Patient not taking.Reported on 11/17/2022 Active Problems Problem Noted Date Diagnosed Date Surgery, elective 10/05/2022 Cervical myelopathy 07/15/2022 Overview (07/15/2022): Added automatically from request for surgery [id number] Osteoarthritis 03/04/2022 Neuropathy 01/25/2019 Polyp of colon 11/18/2016 Immunizations Immunization Administration Dates Next Due Influenza, Quadrivalent, Ursula l Culture-based MDCK, Preservative Free, Antibiotic Free, Intramuscular 06/12/2019 Influenza, Quadrivalent, Spl it, Preservative Free, Intramuscular 06/21/2015 Influenza, Trivalent, High D ose, Split, Preservative Free, Intramuscular 07/08/2018,07/07/2018,07/17/2016 Influenza, Trivalent, IM (MDV) 06/11/2013 Pneumococcal Conjugate PCV 13 06/10/2021 Tdap 06/26/2021,08/26/2015 Surgical History Surgery Date Site/Laterality Comments SPINE SURGERY IR G TUBE PLACEMENT PERCUTANEOUS 10/20/2022 N/A Medical History Medical History Date Comments Type 2 diabetes mellitus Hypertension Osteoarthritis Family History Medical History Relation Name Comments Diabetes Mother Hypertension Mother Diabetes Sister Early Sister Relation Name Status Comments Mother Sister Social History Tobacco Use Types Packs/Day Years Used Date Smoking Tobacco: Some Days Cigarettes 0.5 50 Smokeless Tobacco: Never Tobacco Cessation:Ready to Q uit: Not Asked; Counseling Given: Yes AUDIT-C Answer Date Recorded Q1: How often do you have a drink containing alcohol? 4 or more times a week 03/09/2023 Q2: How many drinks containi ng alcohol do you have on a typical day when you are drinking? 1 or 2 Q3: How often do you have si x or more drinks on one occasion? Never 03/09/2023 Sex and Gender Information Value Date Recorded Sex Assigned at Not on file Legal Sex Male 6:45 AM CDT Gender Identity Not on file Sexual Orientation Not on file Obstetrics History Last Filed Vital Signs Vital Sign Reading Time Taken Comments Blood Pressure 118/69 11/17/2022 1:31 PM CDT Pulse 75 11/17/2022 1:31 PM CDT Temperature 36.1 C (97 F) 10/21/2022 7:55 AM MAGNETIC TESTER Respiratory Rate 18 10/22/2022 8:10 AM MAGNETIC TESTER Oxygen Saturation 92% 10/22/2022 12:13 PM MAGNETIC TESTER Inhaled Oxygen Concentration - - Weight 86.2 kg (190 lb) 03/09/2023 2:35 PM CDT Height 180.3 cm (5' 11) 03/09/2023 2:35 PM CDT Body Mass Index 26.5 03/09/2023 2:35 PM CDT Plan of Treatment Health Maintenance Due Date Last Done Comments Depression Screening 1950 Hepatitis C Screening 1950 Hepatitis B Screening 1966 Zoster Vaccine (1 of 2) 1998 Abdominal Aortic Aneurysm (A AA) Screen 2013 Well Visit 65+ 2013 Pneumococcal vaccine 65+ (2 of 2 - PPSV23, PCV20, or PCV21) 08/05/2021 06/10/2021 Fall Risk Assessment 10/22/2023 10/22/2022 Covid-19 Vaccine (4 - 2024-2 6 season) 2025 07/22/2021, 11/23/2020, 11/02/2020 Influenza Vaccine (#1) 2025 9, 07/08/2018, 07/07/2018, Additional history exists DTaP/Tdap/Td Vaccine (3 - Td or Tdap) 06/26/2031 06/26/2021, 08/26/2015 Colon Cancer Screening-CT Colonography Discontinued 12/07/2016 Colon Cancer Screening-Colonoscopy Discontinued 12/07/2016 Colon Cancer Screening-DNA Stool Discontinued 12/08/19 17 Colon Cancer Screening-FIT Discontinued 12/07/2016 Colon Cancer Screening-FOBT Discontinued 12/07/2016 Colon Cancer Screening-Sigmoidoscopy Discontinued 12/07/2016 Colorectal Cancer Screening Discontinued Medical Devices Implanted Type Area Production Planner Scheduler Device Identifier Shelf Expiration Date Model / Serial / Lot [place] Spine Cage Spinal [id number] Mmm Radha 0d 26-38mm Set Screw [id number] - [id number] Implanted:Qty: 1 on 10/04/2022 by Bismark De La Garza MD at [facility] N/A: Spine Cervical [place] Spine 07/04/2025 [id number] / / [id number] Dwight Spine [place] 42mm 2 Level Spine Cervical Plate Bone Nonsterile [id number] - [id number] Implanted:Qty: 1 on 10/04/2022 by Bismark De La Garza MD at [facility] N/A: Spine Cervical [place] Spine [id number] / / Dwight Spine [place] 4mm 18mm Self Start Variable Angle Spine Cervical Screw [id number] - [id number] Implanted:Qty: 4 on 10/04/2022 by Bismark De La Garza MD at [facility] N/A: Spine Cervical Dwight Spine [id number] / / Procedures Procedure Name Priority Date/Time Associated Diagnosis Comments COLONOSCOPY REPORT 12/07/2016 from Last 3 Months or Most Recently Relevant to Health Maintenance Results * COLONOSCOPY REPORT (12/07/2016) Anatomical Region Laterality Modality Other Narrative 12/07/2016 Ordered by an unspecified provider. us Historical Provider GI PROCEDURE ORDERABLES F inal Result from Last 3 Months or Most Recently Relevant to Health Maintenance Insurance [employer] OOS MEDICARE [facility] ACCESS MEDICARE [employer] OOS Member Subscriber Plan / Payer (Ef fective 2008-Present) Name:Jaskaran Smith Relation to Subscriber:Self Name:Jaskaran Smith Payer ID:[id number] (NAIC) Type: ALLIANCE Address: [address] [place] [id number] MEDICARE Advance Directives For more information, please contact: [phone] Documents on File Type Date Recorded Patient Appliquer Expl anation ADVANCE DIRECTIVE 10/04/2022 9:20 AM Power of Training And Development Specialist-Medical * Full Code (Latest Code Status on File) Date Activated Date Inactivated Comments 10/04/2022 9:18 PM 10/22/2022 9:09 PM Care Teams Manager Company Relationship Specialty Start Date End Date José Vogel MD [address] [facility] [address] [place] [id number] PCP - General 12/07/16
== END 2025-06-20 13:07 | disposition home or self-care (01) ==
PROVIDERS: PCP Family Medicine; Visit Provider Nurse Practitioner Family
DX: K63.89 Other specified diseases of intestine (principal); Z86.0100 Personal history of colon polyps, unspecified; K76.0 Fatty (change of) liver, not elsewhere classified
CPT/HCPCS: 71260; 74177; Q9967

== ENCOUNTER 2025-07-29 09:43 | Outpatient (CLI) | payer MEDICARE, SELFPAY ==
--- NOTE | ~2025-07-29 | NM_ITS ---
EXAMINATION: NM susan stress w perfusion DATE: 07/29/2025 13:02 INDICATION: Encounter for preprocedural cardiovascular examination TECHNIQUE: Rest images were obtained following intravenous administration of 10 mCi Tc99m tetrofosmin (Myoview). The patient was infused intravenously with Lexiscan (Regadenoson). Then, 30 mCi Tc99m tetrofosmin (Myoview) was administered intravenously, and stress images were obtained. Data was reconstr ucted into short axis and horizontal and vertical long axis SPECT images. Gated SPECT images were also obtained. COMPARISON: None. FINDINGS: There is a small mild perfusion defect on the rest images at the apical and apical septal segment which nearly normalizes at the apical segment on the gated stress images and which normalizes at the apex and nearly normalizes at the apical septal segment on the gated post stress images which would favor artifact over infarct. No reversible perfusion defect to suggest ischemia.. There is normal left ventricular chamber size, wall motion and ejection fraction. Left ventricular ejection fraction measures 53%. IMPRESSION: 1. Small region of decreased activity at the apical and apical septal segments on the rest images which normalizes apical segment nearly normalizes at the apical septal segment on the gated post stress imaging favoring artifact over infarct. No evident ischemia. 2. Left ventricular ejection fraction measuring >70%. Reviewed, dictated and finalized at location A. CUTTER IMPRESSION: 1. Small region of decreased activity at the apical and apical septal segments on the rest images which normalizes apical segment nearly normalizes at the api monica septal segment on the gated post stress imaging favoring artifact over infa rct. No evident ischemia. 2. Left ventricular ejection fraction measuring >70%.
--- NOTE | 2025-07-29 10:47 | EST_ITS ---
Patient Info Name: Jaskaran Smith Age: 74 years : 1950 Gender: Male Ht: 71 in Wt: 194 lbs BSA: 2.11 m2 HR: 55 bpm BP: 150 / 87 mmHg Exam Date: 07/29/2025 10:47 AM Patient Status: O Admit Date: 07/29/2025 Exam Type: CA stress susan w NM A regadenoson stress test was performed. Staff Referring Physician: Tigre Swift DO Attending Provider: Tigre Swift DO Exercise Technologist: Wendy Figueroa Exercise Physician: Tigre Swift DO Summary 1. 1. Negative lexiscan stress test for ischemic ST changes by ECG criteria. 2. 2. Baseline hypertension. 3. 3. Nuclear scan to follow and will be reported separately. Please correlate with it. 4. 4. Patient informed of the above results. Protocol: Lexiscan Stress ECG Details Stage: REST Duration (min): 0 min : 51 sec HR (bpm): 60 SBP (mmHg): 150 DBP (mmHg): 87 Stage: REST Duration (min): 7 min : 2 sec HR (bpm): 56 SBP (mmHg): 150 DBP (mmHg): 87 Stage: STAGE 1 Duration (min): 0 min : 59 sec HR (bpm): 72 SBP (mmHg): 144 DBP (mmHg): 85 Stage: RECOVERY Duration (min): 1 min : 0 sec HR (bpm): 74 SBP (mmHg): 144 DBP (mmHg): 85 Stage: RECOVERY Duration (min): 2 min : 0 sec HR (bpm): 74 SBP (mmHg): 144 DBP (mmHg): 85 Stage: RECOVERY Duration (min): 3 min : 0 sec HR (bpm): 69 SBP (mmHg): 134 DBP (mmHg): 81 Stage: RECOVERY Duration (min): 3 min : 1 sec HR (bpm): 70 SBP (mmHg): 134 DBP (mmHg): 81 Rest HR: 56 bpm Peak HR: 77 bpm Rest Sys BP: 150 mmHg Peak Sys BP: 144 mmHg Max Pred HR: 144 bpm % Max Pred HR: 53 % Target HR: 122 bpm Max RPP: 11,088 bpm*mmHg Termination Reason: Completed protocol Cardiac Symptoms: Shortness of breath Total Time: 1 min : 0 sec Rest Gleason BP: 87 mmHg Peak Gleason BP: 85 mmHg Total Dose: 0.4 mg Resting ECG Sinus bradycardia, IVCD, BRWP. Stress ECG No ST changes. Arrhythmias None. Report Signatures
--- OUTSIDE RECORDS SUMMARY | 2025-07-29 11:02 | XMS_ITS | Encounter Summary ---
Author Organization [facility] Address [address] [place] [address] Care Team Providers Care Food Consultant Name Role Phone José Vogel MD Primary Care Provider [phone] Encounter Details Date Type Department Care Team (Late st Contact Info) Description 04/22/2022 Lab Requisition [facility] [address] [facility] [facility] [place] [id number] Gianluca Arias MD [address] [facility] [place] [address] Social History Tobacco Use Types Packs/Day Years Used Date Smoking Tobacco: Never Assessed Sex and Gender Information Value Date Recorded Sex Assigned at Not on file Legal Sex Male 9:32 AM CDT Gender Identity Not on file Sexual Orientation Not on file documented as of this encounter Plan of Treatment Not on file documented as of this encounter Procedures Procedure Name Priority Date/Time Associated Diagnosis Comments DERMATOPATHOLOGY Routine 04/20/2022 3:33 AM CDT documented in this encounter Results * DERMATOPATHOLOGY (04/20/2022 3:33 AM CDT) Case Report Dermatopathology Report Case: [id number] Authorizing Provider: Gianluca Arias MD Collected: 04/20/2022 03:33 AM Ordering Location: [facility] Received: 04/22/2022 07:00 AM Pathologist: Veda Jacinto MD Specimen: Skin, right upper anglican 4:58 PM CDT DERMATOPATHOLOGY LABORATORY Final Diagnosis Specimen A. SKIN, right upper anglican: SEBORRHEIC KERATOSIS, INFLAMED (L82.0) EPIDERMOID CYST WITH EVIDENCE OF RUPTURE (L72.0) DERMAL FIBROSIS (L90.5) (see microscopic description) 2 4:58 PM CDT DERMATOPATHOLOGY LABORATORY at 1658 CDT Clinical History SK vs. SCCA. Path# [id number] 2 4:58 PM CDT DERMATOPATHOLOGY LABORATORY Gross Description Specimen A: Received is one formalin filled container labeled with the patient's name and designated right upper anglican. The specimen consists of a shave biopsy measuring [id number]. Jar 0. 2 4:58 PM CDT DERMATOPATHOLOGY LABORATORY Microscopic Description Specimen A. SKIN, right upper anglican: There is hyperkeratosis, parakeratosis, papillomatosis, and acanthosis of the epidermis. There is a lymphohistiocytic infiltrate within the papillary dermis that is focally lichenoid. Within the dermis, there is a space lined by epithelium that resembles normal epidermis and the infundibular portion of the hair follicle. Surrounding this is an infiltrate with neutrophils, histiocytes, and multinucleated giant cells. There is focal dermal fibrosis. 2 4:58 PM CDT DERMATOPATHOLOGY LABORATORY Disclaimer An external and internal positive and negative controls are appropriate for the histochemical, immunohistochemical and immunofluorescence stain(s) in this case (if any), except where stated explicitly. The performance characteristics of the stain(s) cited in this report were developed and its performance characteristic determined by the Dermatopathology Laboratory at [facility], directed by Dr. Lucretia Castelan. These tests need not be, and therefore are not, approved by the [place] Food and Drug Administration. The tests are used for clinical purposes. Billing Codes Specimen Charges Stain Charges 77175 1 2 4:58 PM CDT DERMATOPATHOLOGY LABORATORY Embedded Images 2 4:58 PM CDT DERMATOPATHOLOGY LABORATORY Pathology/Cytolo gy TISSUE SPECIMEN FROM SKIN / Unknown 04/20/2022 3:33 AM CDT 04/22/2022 7:00 AM CDT us Gianluca Arias MD LAB - PATHOLOGY/CYTOLOGY ORDER PAYAL Final Result DERMATOPATHOLOGY LABORATORY [facility] - Department of Dermatology [address], [address] [phone] documented in this encounter Visit Diagnoses Not on filedocumented in this encounter Care Teams Food Consultant Relationship Specialty Start Date End Date José Vogel MD [address] [place] [address] PCP - General 01/28/22 documented as of this encounter
--- OUTSIDE RECORDS SUMMARY | 2025-07-29 11:02 | XMS_ITS | Clinical Summary ---
Author Organization [facility] Address [facility] [address] Care Team Providers Care Airline Radio Operator Name Role Phone José Vogel MD Primary Care Provider [phone] Active Problems Problem Noted Date Diagnosed Date [...] Vaccine: 50+ Years (2 of 2 - PCV20 or PCV21) 06/10/2022 06/10/2021 RSV Immunization or 60+ Years (1 - 1-dose 75+ series) 2023 COVID-19 Vaccine ( - season) 2025 07/22/2021, 11/23/2020, 11/02/2020 Influenza Adult (#1) 2025 06/12/2019, 07/08/2018, 07/07/2018, Additional history exists DTaP, Tdap and Td Vaccines (3 - Td or Tdap) 06/26/2031 06/26/2021, 08/26/2015 Hepatitis A Vaccines Aged Out No long er eligible based on patient's age to complete this topic Meningococcal B Vaccine Aged Out No l onger eligible based on patient's age to complete this topic Meningococcal Vaccine Aged Out No juanita frida eligible based on patient's age to complete this topic RSV Immunizations Under 20 Months Aged Out No longer eligible based on patient's age to complete this topic Insurance [facility] Care Teams Airline Radio Operator Relationship Specialty Start Date End Date José Vogel MD [address] [place] [address] PCP - General FAMILY PRACTICE 11/19/22
--- OUTSIDE RECORDS SUMMARY | 2025-07-29 11:02 | XMS_ITS | Clinical Summary ---
Author Organization [facility] Address [address] [place] [address] Care Team Providers Care Supervising Bailiff Name Role Phone José Vogel MD Primary Care Provider [phone] Source Comments [facility],non-owned Affiliates and Associated Physician Practices is amultiple site organization consisting of ambulatory clinics and hospital sitesin [place], [place], [place] and [place]. This disclosure is being madepursuant to the Care Everywhere program and may not contain all information available regarding this patient. Last updated 18.[facility] Social History Tobacco Use Types Packs/Day Years Used Date Smoking Tobacco: Never Assessed Sex and Gender Information Value Date Recorded Sex Assigned at Not on file Legal Sex Male 9:32 AM CDT Gender Identity Not on file Sexual Orientation Not on file Plan of Treatment Health Maintenance Due Date Last Done Comments MEDICARE AWV 12 MONTHS 1950 HEPATITIS C SCREENING 09/08/1966 DTAP/TDAP/TD VACCINES (1 - Tdap) 1967 PNEUMOCOCCAL VACCINE 50+ (1 of 1 - PCV) 1998 ZOSTER VACCINE (1 of 2) 1998 Respiratory Syncytial Virus (RSV) Vaccine Pt: or over 60 yrs (1 - 1-dose 75+ series) 2023 DEPRESSION SCREENING 09/05/2024 COVID-19 VACCINE (1 - 2024- season) 2025 INFLUENZA VACCINE (#1) 2025 9, 07/08/2018, 07/07/2018, Additional history exists HEPATITIS B VACCINE Aged Out No longe r eligible based on patient's age to complete this topic HIB VACCINE Aged Out No longer eligi ble based on patient's age to complete this topic HPV VACCINE Aged Out No longer eligi ble based on patient's age to complete this topic MENINGOCOCCAL (Group B) VACCINE SHARED DECISION-MAKING Aged Out No longer eligible based on patient's age to complete this topic MENINGOCOCCAL GROUPS A/C/Y/W VACCINE Aged Out No longer eligible based on patient's age to complete this topic Insurance MEDICARE MEDICARE SUPPLEMENT PAYOR GENERIC Care Teams Supervising Bailiff Relationship Specialty Start Date End Date José Vogel MD [address] [place] [address] PCP - General 01/28/22
--- OUTSIDE RECORDS SUMMARY | 2025-07-29 11:02 | XMS_ITS | Clinical Summary ---
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 Oxygen Saturation 92% 10/22/2022 12:13 PM BLACK MILL 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 Inhaled Oxygen Concentration - - Weight 86.2 [...] Screening Discontinued Medical Devices Implanted Type Area Planetarium Sky Show Technician Device Identifier Shelf Expiration Date Model / Serial / Lot Dwight Spine Cage Spinal [id number] Mmm Radha 0d 26-38mm Set Screw [id number] - [id number] Implanted:Qty: 1 on 10/04/2022 by Bismark De La Garza MD at [facility] N/A: Spine Cervical [place] Spine 07/04/2025 [id number] / / [id number] Dwight Spine Union 42mm 2 Level Spine Cervical Plate Bone Nonsterile [id number] - [id number] Implanted:Qty: 1 on 10/04/2022 by Bismark De La Garza MD at [facility] N/A: Spine Cervical Dwight Spine [id number] / / Dwight Spine Union 4mm 18mm Self Start Variable Angle Spine Cervical Screw [id number] - [id number] Implanted:Qty: 4 on 10/04/2022 by Bismark De La Garza MD at [facility] N/A: Spine Cervical [place] Spine [id number] / / Procedures Procedure Name Priority Date/Time Associated Diagnosis Comments COLONOSCOPY REPORT 12/07/2016 from Last 3 Months or Most Recently Relevant to Health Maintenance Results * COLONOSCOPY REPORT (12/07/2016) Anatomical Region Laterality Modality Other Narrative 12/07/2016 Ordered by an unspecified provider. 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
== END 2025-07-29 09:44 | disposition home or self-care (01) ==
PROVIDERS: PCP Family Medicine; Visit Provider Internal Medicine Cardiovascular Disease
DX: Z01.810 Encounter for preprocedural cardiovascular examination (principal); I10 Essential (primary) hypertension
CPT/HCPCS: 78452; 93017; A9502; J2785

== ENCOUNTER 2025-08-12 09:18 | Outpatient (CLI) | payer MEDICARE, SELFPAY ==
[2025-08-12 10:58] LABS: Hematocrit 51.0 % (42.0-52.0); Hemoglobin 16.6 g/dL (14.0-18.0)
[2025-08-12 11:23] LABS: Anion Gap 6 mmol/L (4-12); Blood Urea Nitrogen 25 mg/dL (9-20); Calcium 9.6 mg/dL (8.4-10.2); Carbon Dioxide 32 mmol/L (22-30); Chloride 100 mmol/L (98-107); Estimated Glomerular Filt Rate > 60; Glucose 178 mg/dL (65-110); Potassium 4.0 mmol/L (3.4-5.0); Sodium 138 mmol/L (137-145)
[2025-08-12 11:54] LABS: Carcinoembryonic Antigen 1.4 ng/mL (0.0-3.0)
== END 2025-08-12 09:19 | disposition home or self-care (01) ==
PROVIDERS: Anesthesiology; PCP Family Medicine; Visit Provider Surgery
DX: Z01.818 Encounter for other preprocedural examination (principal); C18.0 Malignant neoplasm of cecum; E11.65 Type 2 diabetes mellitus with hyperglycemia
CPT/HCPCS: 36415; 80048; 82378; 85014; 85018; 86850; 86900; 86901

== ENCOUNTER 2025-08-23 08:40 | Inpatient (IN) | payer MEDICARE, SELFPAY ==
--- NOTE | 2025-08-12 09:58 | PC.NURSE ---
[facility] has started construction of its new state of the art ER which will open Spring 2026. With this, we anticipate parking may be a challenge for some our surgical patients and families. Parking spaces are limited but are available for all Surgical, obstetrics, and ER patients sharing this lot. If you arrive and find you are having a hard time finding a parking space, please note that we understand the challenges, please drive around the hospital and park near Hospital Entrance 1. When you enter this entrance, you can ask a volunteer to direct or take you back to the surgical waiting area to check in. We appreciate everyone?s understanding of these expected challenges while we build for your future. Report to the Outpatient Waiting Room, entrance under the green pavilion located off [address], at time _8:30 AM on date 08/23/25 . Planned Procedure Time: _10:30 AM .? Time changes happen often and if your time is changed the preop area will call you the afternoon before. - You and your visitor will be asked to self-screen and do not enter if you have any COVID symptoms. Please call surgeon if you need to reschedule. - A mask is optional within the hospital at this time. Patients may have clear liquids (water, carbonated beverages, clear teas, apple juice) until 3 hours prior to surgery( 7:30 AM) with a maximum of 20 ounces. - No food from midnight until time of surgery and no smoking, or chewing tobacco (or any form of nicotine). No chewing gum, candy or mints. Take only the following medications with a SIP of water on the morning of surgery: ___AMLODIPINE,EYE DROPS DO NOT STOP ANY OF YOUR OTHER PRESCRIPTION MEDICATIONS PRIOR TO SURGERY EXCEPT THE FOLLOWING Hold all vitamins and supplements for 3 days per anesthesiologist.LAST DOSE 08/19/25 Medications to discontinue per physician ____NONE Date to take last dose BOWEL PREP PER DR TOBAR ENSURE BUNDLE PACK PER DR TOBAR CHLORHEXIDINE CLEANSER DAY BEFORE SURGERY AND MORNING OF SURGERY Please no make-up, nail malaysian, hairspray, perfume, deodorant, or body powder the day of surgery.? No jewelry (including any body piercings) or valuables the day of surgery, leave them at home.? Please take a shower or bath the night before, or the morning of, surgery with an antibacterial soap.? Wear comfortable, loose fitting clothing.? Children are encouraged to wear pajamas. - Jewelry must be removed prior to entering the operating room.? Rings and piercings that are not removed may be cut off. - The hospital will not accept responsibility for valuables.? - Please leave all valuables, including medications, at home the day of surgery. If you are going home after surgery, a licensed meals on wheels driver must drive you home.? - NO public transportation without another adult if you receive anesthesia. - We recommend that an adult stay with you for 24 hours following discharge. - We also recommend that you do not drive, make important decision, drink alcoholic beverages, or take any drugs that were not prescribed by your health care provider for at least 24 hours after your discharge time. For Pediatric surgeries, we recommend two adults accompany the child home. Follow any additional instructions given to you from your surgeon. VERBAL AND WRITTEN instructions given to ____PATIENT and asked if any additional questions and then verbalized understanding. Patient advised to call surgeon office or pre surgery nurse liaison [phone] if any additional questions.
[2025-08-12 10:02] VITALS: BMI 27.3
[2025-08-12 10:40] VITALS: BP 132/66; PULSE 65; RESP 18; TEMP 36.6; O2SAT 97
[2025-08-23] VITALS (18 sets, daily range): BP systolic 117–143; BP diastolic 54–83; PULSE 61–73; RESP 17–26; TEMP 36.3–36.8; O2SAT 85–100; BMI 27.0
[2025-08-23] MEDS: ACETAMINOPHEN 500 MG TABLET 1000 MG PO ×2 (09:15→20:54)
[2025-08-23] MEDS: LACTATED RINGERS 1,000 ML 30 ML IV CONT ×2 (09:30→17:22)
[2025-08-23] MEDS: KETOROLAC 15 MG/ML VIAL (*BKC) IV PUSH (09:30)
[2025-08-23] MEDS: ALVIMOPAN 12 MG CAPSULE PO (10:01)
--- NOTE | 2025-08-23 10:59 | SUR.PREOP ---
patient was spoke to about delay with surgery. Patient understands. Bathroom and warm blankets offered.
--- NOTE | 2025-08-23 11:20 | PM.IMHP2 ---
H&P: HPI History of Present Illness Date/Time: 08/23/25 11:20 Chief Complaint: Right colon cecal adenocarcinoma Narrative: Mr. Smith returns to the office for recheck. He was seen two weeks ago after colonoscopy showed cecal adenocarcinoma. He is to be scheduled for robotic assisted right hemicolectomy once cardiac clearance is obtained. He was seen by Dr. Swift yesterday and is hopefully getting his stress done next week, but date has not been set. At his initial visit, he was noted to have a fungal rash in his bilateral groin crease. Was prescribed Nystatin, which he continues to use as instructed. Rash has improved significantly. Review of Systems Review of Systems: The remainder of the review of systems to include constitutional, HEENT, cardiovascular, respiratory, GI, , integumentary, musculoskeletal, endocrine, immunologic, hematologic, psychiatric, and neurologic are all negative except for which is mentioned above in the HPI. [facility] Past Medical History Medical History Adenocarcinoma of cecum Over weight Smoking history History of colon polyps Smoking Afib At high risk for aspiration DM neuro manif type II Essential (primary) hypertension Peripheral polyneuropathy Pure hypercholesterolemia Type 2 diabetes mellitus with hyperglycemia Surgical History Surgical History History of back surgery Multiple back surgeries. Family History Family History Sibling Patient's sister is in good health Patient's brother is in good health Family history of diabetes mellitus in first degree relative Social History Social History Social History: Smoking packs per day: 0.5 Smoking cigarettes per day: 10.0 Years smoked: 40 Smoking pack-years: 20.00 Smoking status: Current every day smoker Tobacco type: cigarettes Second hand tobacco smoke exposure: No Alcohol intake: current Drinks per week: 7 Substance use: never Substance use type: does not use Living arrangements: with family Occupation/Education: occupation Gender identity (if verbalized by the patient): Male Sexual Orientation (if Verbalized by the Patient): Straight or Heterosexual Spiritual care concerns: No Meds Home Medications and Allergies Home Medications ?Medication ?Instructions ?Recorded ?Confirmed ?Type blood sugar diagnostic #10 ea 07/25/19 07/18/25 History amlodipine 10 mg tablet See Rx Instructions .Route 11/14/24 08/23/25 Rx .COMPLEX #90 tabs empagliflozin 25 mg tablet See Rx Instructions .Route 11/14/24 08/12/25 Rx (Jardiance) .COMPLEX #90 tabs sitagliptin phosphate 100 mg 100 mg PO DAILY #90 tabs 11/14/24 08/12/25 Rx tablet (Januvia) chlorthalidone 25 mg tablet See Rx Instructions .Route 05/10/25 08/12/25 Rx .COMPLEX #45 tabs nystatin 100,000 unit/gram topical 1 applic topical BID #60 grams 07/02/25 08/12/25 Rx powder glyburide 5 mg tablet 5 mg PO DAILY #90 tabs 07/04/25 08/12/25 Rx ciprofloxacin HCl 500 mg tablet 500 mg PO .COMPLEX #1 tablet 07/31/25 08/12/25 Rx metronidazole 500 mg tablet 500 mg PO .COMPLEX #3 tabs 07/31/25 08/12/25 Rx cholecalciferol (vitamin D3) 50 2,000 unit PO DAILY 08/12/25 08/12/25 History mcg (2,000 unit) capsule timolol maleate 0.5 % eye drops 1 drp EACH EYE Q12H 08/12/25 08/23/25 History atorvastatin 20 mg tablet See Rx Instructions .Route 08/14/25 Rx .COMPLEX #90 tabs fenofibrate 160 mg tablet See Rx Instructions .Route 08/14/25 Rx .COMPLEX #90 tabs metformin 1,000 mg tablet See Rx Instructions .Route 08/14/25 Rx .COMPLEX #180 tabs Allergies Allergy/AdvReac Type Severity Reaction Status Date / Time No Known Allergies Allergy Verified 08/12/25 10:03 Vital Signs Vital Signs - 24 hr 08/23/25 09:58 Temperature 36.4 C L Pulse Rate 68 Blood Pressure 118/59 L Pulse Oximetry 100 Oxygen Delivery Room Air Exam Const: General: comfortable and no acute distress HENMT: Ears: TM's normal bilaterally Face/Nose/Sinus: Normal nares present Mouth: Yes moist mucous membranes Eyes: General: appearance normal, both eyes and all related structures Sclera: sclerae normal Pupils: Equal, round and reactive pupils present EOM: EOMs intact bilaterally Neck: Neck: supple and no JVD Resp: Effort & Inspection: normal respiratory effort Auscultation: clear to auscultation bilaterally Cardio: Rate: regular rate Rhythm: regular rhythm GI: GI Palp: Yes Soft to palpation, No Firmness to palpation present (GI), No Tenderness to palpation present (GI) and No Guarding due to palpation present (GI) Other: No evidence of any groin crease rashes. Skin: General skin exam: normal color and no rashes or lesions noted Neuro: General: gait normal Speech: normal speech Motor exam (neuro): 5/5 motor strength present throughout Sensory Exam: normal sensation Extrem: General: normal to inspection Psych: Mental Status: mental status grossly normal Affect: normal affect Assessment and Plan Assessment and plan (1) Adenocarcinoma of cecum: Code(s): C18.0 - Malignant neoplasm of cecum Status: Acute Assessment and Plan: Pt cleared from cardiology. Groin crease rash resolved. Proceed with robotic assisted laparoscopic right hemicolectomy, possible open today. Risks, benefits, indications, and expected outcomes were discussed in detail with the patient and/or family. They understand and I have answered all other questions. They wished to proceed with surgery as outlined above.
--- NOTE | 2025-08-23 11:27 | WPDHPUPDATE1 ---
History and Physical Update Update Date/Time: 08/23/25 11:27 History and Physical has been reviewed, including an updated exam of the patient. There are NO changes in the patient's condition. Risks, benefits, and alternatives have been discussed and questions answered. Patient agrees to proceed with procedure.
--- NOTE | 2025-08-23 11:40 | WPDANESEPPF ---
Anes - Initial Pre Proc Eval Procedure: Operation Date: 08/23/25 10:30 Proposed Procedures p Robotic Assisted Laparoscopic Right Hemicolectomy, Possible Open - Isaac Becerra MD Date/Time: 08/23/25 11:40 Surgeon: Isaac Becerra MD Pre Op Diagnosis: right colon/ cecal adenocarcinoma Patient Data Age: 74 Gender: M Height: 1.8 m Weight: 88 kg Last Vital Signs Temp 36.4 C L 08/23/25 09:58 Pulse 68 08/23/25 09:58 Resp 18 08/12/25 10:40 BP 118/59 L 08/23/25 09:58 Pulse Ox 100 08/23/25 09:58 O2 Del Method Room Air 08/23/25 09:58 Allergies Allergy/AdvReac Type Severity Reaction Status Date / Time No Known Allergies Allergy Verified 08/12/25 10:03 Home Medications ?Medication ?Instructions ?Recorded ?Confirmed ?Type blood sugar diagnostic #10 ea 07/25/19 07/18/25 History amlodipine 10 mg tablet See Rx Instructions .Route 11/14/24 08/23/25 Rx .COMPLEX #90 tabs empagliflozin 25 mg tablet See Rx Instructions .Route 11/14/24 08/12/25 Rx (Jardiance) .COMPLEX #90 tabs sitagliptin phosphate 100 mg 100 mg PO DAILY #90 tabs 11/14/24 08/12/25 Rx tablet (Januvia) chlorthalidone 25 mg tablet See Rx Instructions .Route 05/10/25 08/12/25 Rx .COMPLEX #45 tabs nystatin 100,000 unit/gram topical 1 applic topical BID #60 grams 07/02/25 08/12/25 Rx powder glyburide 5 mg tablet 5 mg PO DAILY #90 tabs 07/04/25 08/12/25 Rx ciprofloxacin HCl 500 mg tablet 500 mg PO .COMPLEX #1 tablet 07/31/25 08/12/25 Rx metronidazole 500 mg tablet 500 mg PO .COMPLEX #3 tabs 07/31/25 08/12/25 Rx cholecalciferol (vitamin D3) 50 2,000 unit PO DAILY 08/12/25 08/12/25 History mcg (2,000 unit) capsule timolol maleate 0.5 % eye drops 1 drp EACH EYE Q12H 08/12/25 08/23/25 History atorvastatin 20 mg tablet See Rx Instructions .Route 08/14/25 Rx .COMPLEX #90 tabs fenofibrate 160 mg tablet See Rx Instructions .Route 08/14/25 Rx .COMPLEX #90 tabs metformin 1,000 mg tablet See Rx Instructions .Route 08/14/25 Rx .COMPLEX #180 tabs Laboratory Tests 08/23/25 09:36 POC Capillary Glucose 197 H mg/dl (65-105) Patient hx anesthesia problems: none Family hx anesthesia problems: none Results Review: All pre-operative results and documents have been reviewed as part of the pre-operative evaluation. [facility] Past Medical History Medical History Adenocarcinoma of cecum Over weight Smoking history History of colon polyps Smoking Afib At high risk for aspiration DM neuro manif type II Essential (primary) hypertension Peripheral polyneuropathy Pure hypercholesterolemia Type 2 diabetes mellitus with hyperglycemia Surgical History Surgical History History of back surgery Multiple back surgeries. Family History Family History Sibling Patient's sister is in good health Patient's brother is in good health Family history of diabetes mellitus in first degree relative Social History Social History Social History: Smoking packs per day: 0.5 Smoking cigarettes per day: 10.0 Years smoked: 40 Smoking pack-years: 20.00 Smoking status: Current every day smoker Tobacco type: cigarettes Second hand tobacco smoke exposure: No Alcohol intake: current Drinks per week: 7 Substance use: never Substance use type: does not use Living arrangements: with family Occupation/Education: occupation Gender identity (if verbalized by the patient): Male Sexual Orientation (if Verbalized by the Patient): Straight or Heterosexual Spiritual care concerns: No Anes - Eval Final PreProcedure Day of Procedure 08/23/25 11:40 Patient weight: overweight Heart: regular rate and rhythm Lungs: clear to auscultation Airway: Mallampati scale class II Neurological: alert and oriented Last oral intake: >/= 8 hours ASA classification: III Emergent: no Anesthetic plan: proceed Anesthesia type and monitoring: general ETT and standard monitoring Results Review: All pre-operative results and documents have been reviewed as part of the pre-operative evaluation. Informed Consent: The patient's anesthetic plan and its attendant risks and benefits were discussed with the patient/family/POA. Questions were solicited and answers provided to the satisfaction of the patient/family/POA.
[2025-08-23] MEDS: ceFAZolin 2 GM in SODIUM CHLORIDE 0.9% IV 50 ML 100 ML IVPB (11:54)
[2025-08-23] MEDS: LIDO 1%/EPINEPHRINE 1:100,000 50 ML VIAL 30 ML INFILTRATE (11:54)
[2025-08-23] MEDS: metroNIDAZOLE 500 MG/ISO 100ML 500 MG/100 ML BAG 100 MG IVPB (11:54)
[2025-08-23] MEDS: INDOCYANINE GREEN 25 MG VIAL WITH DILUENT 3.75 MG IV PUSH (15:30)
--- NOTE | 2025-08-23 16:55 | S_PTH ---
PATIENT: Jaskaran Smith LOC: [id number] U#:[id number] AGE/SX: 74/M ROOM: 3 RE08/23/[address]: Xochilt Cano MD : 1950 BED: 2 DIS: 08/25/2025 SPEC #: [id number] RECD: 08/26/25 07:24 STATUS: NICOLAS REJordan #: [id number] ROCHELLE: 08/23/25 16:[address]: Isaac Becerra DEPT: [facility] Surgical RECD BY: Zuleyka Welch ENTERED: 08/26/25 07:25 SP TYPE: Surgical OTHR DR: José Vogel MD Tissues: A - Colon Segment Tumor Procedures: Hematoxylin and Eosin Stain Gross and Microscopic Level 6
[2025-08-23] MEDS: fentaNYL CITRATE INJ (*CRX) 100 MCG/2 ML VIAL 25 MCG IV PUSH ×2 (17:33→17:39)
[2025-08-23] MEDS: ALBUTEROL SULFATE NEB 2.5 MG/3 ML INH INHALATION (18:28)
[2025-08-23] MEDS: LACTATED RINGERS 1,000 ML 120 ML IV CONT (20:43)
[2025-08-23] MEDS: ceFAZolin 1 GM in SODIUM CHLORIDE 0.9% IV 50 ML 100 ML IVPB (20:48)
[2025-08-23] MEDS: HYDROcodone/acetaminophen (*CRX) 5-325 MG TABLET 1 TAB PO (23:38)
[2025-08-24 04:00] VITALS: BP 124/66; PULSE 84; RESP 18; TEMP 36.3; O2SAT 96
[2025-08-24] MEDS: ceFAZolin 1 GM in SODIUM CHLORIDE 0.9% IV 50 ML 100 ML IVPB ×2 (04:09→12:34)
[2025-08-24] MEDS: HYDROcodone/acetaminophen (*CRX) 5-325 MG TABLET 1 TAB PO (04:09)
[2025-08-24] MEDS: LACTATED RINGERS 1,000 ML 120 ML IV CONT (05:30)
[2025-08-24 05:45] LABS: Hematocrit 49.0 % (42.0-52.0); Hemoglobin 15.7 g/dL (14.0-18.0); Mean Corpuscular HGB Conc 32.0 g/dl (32-36); Mean Corpuscular Hemoglobin 31.4 pg (26-34); Mean Corpuscular Volume 98.0 fl (80-100); Platelet Count Result 161 k/mm3 (150-375); Red Blood Count 5.00 M/mm3 (4.6-6.20); White Blood Count 9.6 K/mm3 (4.5-10.0)
[2025-08-24 06:04] LABS: Alanine Aminotransferase 28 U/L (6-50); Albumin Level 3.4 g/dL (3.5-5.1); Alkaline Phosphatase 50 U/L (38-126); Anion Gap 8 mmol/L (4-12); Aspartate Amino Transferase 37 U/L (17-59); Bilirubin,Total 0.8 mg/dL (0.2-1.3); Blood Urea Nitrogen 19 mg/dL (9-20); Calcium 8.7 mg/dL (8.4-10.2); Carbon Dioxide 24 mmol/L (22-30); Chloride 102 mmol/L (98-107); Estimated CRCL calculation 78 ml/min; Estimated Glomerular Filt Rate > 60; Glucose 148 mg/dL (65-110); Potassium 3.4 mmol/L (3.4-5.0); Sodium 134 mmol/L (137-145); Total Protein 6.0 g/dL (6.3-8.2)
[2025-08-24 06:21] LABS: Band Neutrophils Percent 11 % (0-6); Basophils Absolute Manual 0.00 K/mm3 (0.0-0.1); Basophils Percent Manual 0 % (0-1); Eosinophils Absolute Manual 0.00 K/mm3 (0.02-0.50); Eosinophils Percent Manual 0 % (0-4); Lymphocytes Absolute Manual 1.05 K/mm3 (1.1-4.5); Lymphocytes Percent Manual 11 % (18-44); Monocytes Absolute Manual 0.48 K/mm3 (0.1-0.90); Monocytes Percent Manual 5 % (3-9); Neutrophils Absolute Manual 8.06 K/mm3 (1.3-6.7); Neutrophils Percent Manual 73 % (46-73); Smudge Cells PRESENT; Total Cells Counted 100
[2025-08-24 06:23] LABS: Schistocytes None Seen
[2025-08-24 08:00] VITALS: BP 116/60; PULSE 87; RESP 18; TEMP 36.3; O2SAT 94
[2025-08-24 08:15] VITALS: PULSE 87; RESP 18; O2SAT 94
[2025-08-24] MEDS: INSULIN ASPART (*BKC) 100 UNITS/ML SUB-Q ×3 (08:50→17:32)
[2025-08-24] MEDS: CHLORTHALIDONE 12.5 MG TAB PO (08:56)
[2025-08-24] MEDS: ALVIMOPAN 12 MG CAPSULE PO ×2 (08:56→21:38)
[2025-08-24] MEDS: EMPAGLIFLOZIN 25 MG TABLET BY MOUTH (08:57)
[2025-08-24] MEDS: CHOLECALCIFEROL (VITAMIN D3) 25 MCG (1,000 UNITS) TABLET 50 MCG PO (08:57)
[2025-08-24] MEDS: ENOXAPARIN 40 MG/0.4 ML SYRINGE SUB-Q (08:57)
[2025-08-24] MEDS: PANTOPRAZOLE 40 MG TABLET PO (08:58)
[2025-08-24] MEDS: TIMOLOL MALEATE 0.5% OP SOLN 5 ML BOTTLE 1 DROP EACH EYE ×2 (09:19→21:38)
--- NOTE | 2025-08-24 10:46 | PM.PNGS ---
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 Status: Acute Assessment and Plan: doing well, advanced to full liquid diet, encourage out of bed and incentive spirometer use Subjective Subjective Date/Time Seen: 08/24/25 10:46 Interval history: feels pretty good, minimal pain, tolerating clears Review of Systems Review of Systems: All systems reviewed & are unremarkable except as noted in HPI and below Exam Const: General: cooperative, comfortable and no acute distress Resp: Auscultation: clear to auscultation bilaterally Cardio: Rate: regular rate Rhythm: regular rhythm GI: Inspection: normal to inspection, non-distended and incision GI Palp: Yes abdominal tenderness and Yes Soft to palpation Objective Data Vital Signs Vital Signs: Vital Signs - 24 hr 08/23/25 17:22 08/23/25 17:30 08/23/25 17:45 Temperature 36.3 C L Pulse Rate 65 63 64 Respiratory Rate 26 H 20 19 Blood Pressure 141/69 H 131/59 L 140/70 Pulse Oximetry 96 92 91 Oxygen Delivery Simple Face Mask Simple Face Mask Simple Face Mask Oxygen Flow Rate 8 8 8 08/23/25 18:00 08/23/25 18:15 08/23/25 18:28 Temperature Pulse Rate 61 68 71 Respiratory Rate 20 20 20 Blood Pressure 143/74 H 136/64 Pulse Oximetry 87 L 86 L Oxygen Delivery Simple Face Mask Nasal Cannula Oxygen Flow Rate 8 4 08/23/25 18:30 08/23/25 18:45 08/23/25 19:00 Temperature Pulse Rate 65 63 68 Respiratory Rate 18 21 H 19 Blood Pressure 137/71 122/56 L 129/83 Pulse Oximetry 89 L 85 L 92 Oxygen Delivery Nasal Cannula Simple Face Mask Simple Face Mask Oxygen Flow Rate 4 8 8 08/23/25 19:15 08/23/25 19:30 08/23/25 19:45 Temperature 36.8 C Pulse Rate 66 67 69 Respiratory Rate 21 H 20 20 Blood Pressure 127/54 L 122/57 L 119/64 Pulse Oximetry 90 91 93 Oxygen Delivery Nasal Cannula Nasal Cannula High Flow Nasal Cannula Oxygen Flow Rate 4 4 7 08/23/25 20:15 08/23/25 20:30 08/23/25 20:37 Temperature 36.6 C 36.5 C Pulse Rate 70 70 Respiratory Rate 18 17 Blood Pressure 117/67 119/69 Pulse Oximetry 92 93 97 Oxygen Delivery High Flow Nasal Cannula Oxygen Flow Rate 7 08/23/25 21:00 08/23/25 22:00 08/24/25 04:00 Temperature 36.4 C L 36.4 C L 36.3 C L Pulse Rate 73 73 84 Respiratory Rate 17 18 18 Blood Pressure 120/81 122/68 124/66 Pulse Oximetry 93 92 96 Oxygen Delivery Oxygen Flow Rate 08/24/25 08:00 Temperature 36.3 C L Pulse Rate 87 Respiratory Rate 18 Blood Pressure 116/60 Pulse Oximetry 94 Oxygen Delivery Oxygen Flow Rate Intake/Output Intake/Output: Intake & Output 08/21/25 08/22/25 08/23/25 08/24/25 23:59 23:59 23:59 23:59 Intake Total 500 1700 Balance 500 1700 Meds/Results Medications: Active Medications Generic Name Dose Route Start Last Admin Trade Name Freq PRN Reason Stop Dose Admin Acetaminophen 1,000 mg 08/23/25 19:57 08/23/25 20:54 Acetaminophen 500 Mg Tablet PO 1,000 mg Q6H PRN Administration Mild Pain (1-3) or Fever Hydrocodone Bitart/Acetaminophen 1 tab 08/23/25 19:57 08/24/25 04:09 Hydrocodone/Acetaminophen (*Crx) 5-325 Mg Tablet PO 1 tab Q4H PRN Administration Pain Rated 4-6 Alvimopan 12 mg 08/24/25 09:00 08/24/25 08:56 Alvimopan 12 Mg Capsule PO 08/25/25 09:01 12 mg Q12HR ERIC Administration Amlodipine Besylate 10 mg 08/24/25 09:00 08/24/25 08:56 Amlodipine Besylate 5 Mg Tablet BY MOUTH 10 mg DAILY ERIC Administration Chlorthalidone 12.5 mg 08/24/25 09:00 08/24/25 08:56 Chlorthalidone 12.5 Mg Tab PO 12.5 mg QAM ERIC Administration Dextrose 12.5 gm 08/23/25 17:42 Dextrose 50% 25 Gm/50 Ml Syringe IV PUSH PRN PRN Hypoglycemia Protocol Empagliflozin 25 mg 08/24/25 09:00 08/24/25 08:57 Empagliflozin 25 Mg Tablet BY MOUTH 25 mg DAILY ERIC Administration Enoxaparin Sodium 40 mg 08/24/25 09:00 08/24/25 08:57 Enoxaparin 40 Mg/0.4 Ml Syringe SUB-Q 40 mg DAILY ERIC Administration Glucagon 1 mg 08/23/25 17:42 Glucagon For Inj 1 Mg Vial IM PRN PRN Hypoglycemia Protocol Glucose 15 gm 08/23/25 17:42 Glucose Oral Gel 15 Gm Of Glucse In 37.5 Gm Tube PO PRN PRN Hypoglycemia Protocol Glyburide 5 mg 08/24/25 09:00 Glyburide 5 Mg Tablet PO DAILY ERIC Dextrose 1,000 mls @ 100 mls/hr 08/23/25 17:42 Dextrose 5% 1,000 Ml IVPB PRN PRN Hypoglycemia Protocol Ibuprofen 800 mg in 200 mls @ 400 mls/hr 08/23/25 19:57 Caldolor 800 Mg/200 Ml IVPB Q6H PRN Pain Rated 4-6 Lactated Ringer's 1,000 mls @ 120 mls/hr 08/23/25 19:57 08/24/25 05:30 Lr - Lactated Ringers Iv IV CONT 120 mls/hr .Q8H20M ERIC Administration Cefazolin Sodium 1 gm/ Sodium 50 mls @ 100 mls/hr 08/23/25 21:00 08/24/25 04:09 Chloride IVPB 08/24/25 13:29 100 mls/hr Q8H ERIC Administration Insulin Aspart 4 units 08/24/25 08:00 08/24/25 08:50 Insulin Aspart (*Bkc) 100 Units/Ml 0.05 units/kg (4 units) 4 units SUB-Q Administration [facility] Lidocaine 1 patch 08/24/25 09:00 08/24/25 08:57 Lidocaine 5% Patch TRANSDERM Not Given DAILY [facility] Miscellaneous Information 1 each 08/24/25 00:01 08/24/25 03:18 Clarify Glyburide Dose--Ordered As 5 Mg Daily. Med. Rec Comments State 2.5 Mg Daily. XX 09/23/25 00:00 Not Given [facility] Morphine Sulfate 4 mg 08/23/25 19:57 Morphine Sulfate (*Crx) 4 Mg/Ml Inj IV PUSH Q4H PRN Pain Rated 7-10 Morphine Sulfate 2 mg 08/23/25 19:57 Morphine Sulfate (*Crx) 4 Mg/Ml Inj IV PUSH Q4H PRN Pain Rated 4-6 Ondansetron HCl 4 mg 08/23/25 19:57 Ondansetron Inj 4 Mg/2 Ml Vial IV PUSH Q6H PRN Nausea And Vomiting Oxycodone HCl 5 mg 08/23/25 19:57 Oxycodone Hcl (*Crx) 5 Mg Tab Ir PO Q6H PRN Pain Rated 7-10 Pantoprazole Sodium 40 mg 08/24/25 09:00 08/24/25 08:58 Pantoprazole 40 Mg Tablet PO 40 mg QAM ERIC Administration Sitagliptin Phosphate 100 mg 08/24/25 09:00 08/24/25 08:58 Sitagliptin Phosphate 100 Mg Tablet PO 100 mg DAILY ERIC Administration Timolol Maleate 1 drop 08/23/25 21:00 08/24/25 09:19 Timolol Maleate 0.5% Op Soln 5 Ml Bottle EACH EYE 1 drop Q12H ERIC Administration Vitamin D 50 mcg 08/24/25 09:00 08/24/25 08:57 Cholecalciferol (Vitamin D3) 25 Mcg (1,000 Units) Tablet PO 50 mcg DAILY ERIC Administration Labs Labs: Laboratory Results - last 24 hr 08/23/25 08/23/25 08/24/25 17:38 21:21 05:09 WBC 9.6 RBC 5.00 Hgb 15.7 Hct 49.0 MCV 98.0 MCH 31.4 MCHC 32.0 RDW 13.9 Plt Count 161 MPV 11.0 H Immature Gran % (Auto) Not Reportable Neut % (Auto) Not Reportable Lymph % (Auto) Not Reportable Daniels % (Auto) Not Reportable Eos % (Auto) Not Reportable Baso % (Auto) Not Reportable Lymph # (Auto) Not Reportable Daniels # (Auto) Not Reportable Eos # (Auto) Not Reportable Baso # (Auto) Not Reportable Abs Immat Gran (auto) Not Reportable Absolute Neuts (auto) Not Reportable Absolute Nucleated RBC Not Reportable Total Counted 100 Neutrophils % (Manual) 73 Band Neutrophils % 11 H Lymphocytes % (Manual) 11 L Monocytes % (Manual) 5 Eosinophils % (Manual) 0 Basophils % (Manual) 0 Nucleated RBC % Not Reportable Abs Neuts (Manual) 8.06 H Abs Lymphs (Manual) 1.05 L Abs Monocytes (Manual) 0.48 Absolute Eos (Manual) 0.00 L Abs Basophils (Manual) 0.00 Smudge Cells Present Platelet Estimate Adequate Large Platelets Present Schistocytes None seen Sodium 134 L Potassium 3.4 Chloride 102 Carbon Dioxide 24 Anion Gap 8 BUN 19 Creatinine 0.74 Estim Creat Clear Calc 78 Estimated GFR > 60 Glucose 148 H POC Capillary Glucose 188 H 175 H Calcium 8.7 Total Bilirubin 0.8 AST 37 ALT 28 Alkaline Phosphatase 50 Total Protein 6.0 L Albumin 3.4 L
--- NOTE | 2025-08-24 11:36 | P.OP_ITS ---
Procedure Note - Detailed Date of Procedure 08/23/25 Pre-op Diagnosis Invasive cecal adenocarcinoma Post-op Diagnosis Same Procedure Performed Robotic assisted laparoscopic right hemicolectomy with [id number] anti peristaltic stapled ileocolic anastomosis Surgeon Isaac Becerra MD [facility] ANN Anesthesia General Indications Patient is a 74-year-old gentleman who had a colonoscopy and was found to have a mass in the cecum. This mass was biopsied and revealed a invasive adenocarcinoma. He then underwent a preoperative staging CT scan which showed no evidence of metastatic disease in the chest, abdomen, or pelvis. He had a normal CEA level. He presents now for a robotic assisted laparoscopic right hemicolectomy. Findings Upon in the abdomen patient was found to have a large redundant ascending and transverse colon. Copious amounts omentum and a few omental adhesions to the right abdominal wall were noted. Once the right hemicolectomy was done and the specimen was removed I was easily able to palpate a mass in the cecum which extended to the serosa a did not grossly extend beyond the serosa. No evidence of enlarged lymph nodes were grossly seen at the time of resection of the mesentery and ileocolic pedicle. Gallbladder appeared to be normal. Visualization of both lobes of the liver revealed no masses. There was no peritoneal studding or evidence of metastatic disease to the omentum. A standard right hemicolectomy was performed robotically and a stapled [id number] anti peristaltic ileocolic anastomosis was performed. Description of Procedure After informed consent was obtained patient was brought to the operating room was placed supine position and general endotracheal anesthesia was administered. The abdomen was then prepped and draped usual sterile fashion after placement of a Shelby catheter to decompress the bladder. An orogastric tube was placed decompress the stomach. Time-out was then performed correctly identifying the patient as well as the procedure to be performed. He was given perioperative IV antibiotics. I 1st started by placing a 5mm Optiview port in the left upper quadrant under direct visualization. Once inside the abdomen I insufflated to adequate pneumoperitoneum of 15mmHg of CO2. There were no adhesions of the omentum to obscure the view of the abdomen and the right colon. I then placed robotic trocar ports along the left abdominal wall to include a 12mm left upper quadrant trocar port as well as 2 more 8mm robotic trocar ports. The 5mm laparoscopic trocar port was then switched out to an 8mm robotic trocar port. The [employer] robot was then brought to the patient's bedside and docked and all the robotic arms were attached the robotic ports. Robotic instruments were then advanced into the abdomen under direct visualization. I then scrubbed out the procedure sent down at the robotic console to perform the dissection. Upon initial visualization of the liver there was no masses to suggest any metastatic disease. The gallbladder appeared to be normal without any thickness or chronic inflammation. No gallstones were obviously seen in the gallbladder. There was no peritoneal studding. The omentum appeared to be normal without any apparent metastatic disease. There was redone did right and transverse colon which along with the initial port placement is made dissection more tedious. Eventually I was able to retract all the omentum cephalad over the transverse colon and move most of the redundant transverse colon to the left side of the abdomen. The small bowel was then moved to the left side of the abdomen to expose the mesentery to the terminal ileum and right colon. The appendix was visualized. It was elongated but did not appear to be inflamed in any way. There was no tattoo noted as this was not performed at the time of colonoscopy. With a robotic grasper I was able to hold up the cecum and with tension on the mesentery I identified the ileocolic pedicle. I then proceeded to incise the peritoneum over the ileocolic artery and vein near the aorta and I very carefully dissected out the ileocolic pedicle circumferentially with a combina tion of energized robotic scissors and the vessel sealer. I then proceeded to divide the ileocolic pedicle with the vessel sealer without difficulty. I did not appreciate any lymphadenopathy along the ileocolic chain. I then proceeded to incise the mesentery with the vessel sealer and divided up to the very distal terminal ileum a couple cm proximal to the ileocecal valve. I then proceeded to divide the terminal ileum just proximal to the ileocecal valve utilizing a 60mm robotic PRASANNA stapler. I then turned my attention towards the redundant transverse colon. I then released the anterior leaflet to the omentum to the mid transverse colon utilizing the vessel sealer and then entered the lesser sac. I then very carefully made a defect through the mesentery to the mid transverse colon and then divided the transverse colon just distal to the hepatic flexure utilizing a reload to the 60mm robotic stapler. I then proceeded to dissect between the retroperitoneum and the mesentery to the right ascending colon with a combination of blunt dissection and the vessel sealer. The 1st and 2nd portions of the duodenum were then identified and safely preserved without injury. I then proceeded to divide the mesentery to the right ascending colon and the proximal transverse colon utilizing the vessel sealer to include the right branch to the middle colic artery. I then proceeded to mob ilize the cecum, ascending colon and proximal transverse colon to the midline by dividing the lateral peritoneal attachments to the colon utilizing the vessel sealer. I did not appreciate any extension of tumor beyond the wall of the colon into the abdominal sidewall or any other adjacent visceral structure. Lastly I then divided the hepatocolic ligaments and the right colon was completely mobilized and resected. The specimen was then placed in the right upper quadrant over the top of liver to be removed at the end of procedure. I then proceeded to perform a standard side to side anti peristaltic stapled ileocolic anastomosis. The end of the terminal ileum was then brought in approximation to the proximal transverse colon. 3-0 Vicryl sutures were then placed to approximate the 2 ends of the small bowel in a [id number] anti peristaltic fashion. Robotic david were then used to make defects in both the terminal ileum and transverse colon. And then a reload to the 60mm robotic stapler was then used to create a common channel between the 2 ends of the bowel. The common enterotomy was then closed utilizing a running absorbable 3-0 V-lock suture in 2 layers. The anastomosis was widely patent. Prior to performing the anastomosis the patient was given 3cc of ICG dye intravenously. This allowed me to evaluate the blood supply to the terminal ileum and transverse colon and perfusion to the ends of the bowel were excellent. I then evaluated the right upper quadrant and right lateral abdomen and a small amount of oozing was appreciated. This was treated electrocautery and then I placed Jose topical hemostatic agents into the raw surface area the retroperitoneum. This achieved hemostasis well. The omentum was then pulled down over the anastomosis. A standard laparoscopic grasper was then used 2-0 hold the resected right hemicolectomy specimen down in the pelvis. The robotic instruments removed from the abdomen and the robot was undocked from the pa joel's bedside. I then scrubbed back into the procedure and then proceeded to make a small transverse Pfannenstiel type incision in the midline of the lower abdomen. Dissection was carried down through the subcutaneous tissue electrocautery and then when I reached the rectus muscle I then linea alba vertically to separate the lower portions of the rectus muscle. The peritoneum was entered and a wound protector was placed. The specimen was extracted through the lower abdominal wall incision. I did easily palpate the mass in the cecum. It appeared to extend to the serosa but not outside of the serosa grossly. The specimen was then sent to pathology for examination. I then removed the wound protector and then proceeded to close the small lower abdominal wall midline incision. This was done with a running 0 non looped PDS suture. The subcutaneous tissue was irrigated sterile saline solution hemostasis was achieved utilized electrocautery. The incision was then closed by multiple layers of running 3-0 Vicryl sutures in the subcutaneous tissues. The skin edges were approximated utilizing a running subcuticular 4-0 Monocryl suture. The 12mm left-sided abdominal wall trocar port fascial defect was then closed utilizing 0 Vicryl suture at the anterior rectus fascial layer. All the port sites were then irrigated sterile saline solution hemostasis was good. The port sites were then all closed utilizing a running subcuticular 4-0 Monocryl suture. All the incisions were then dressed with skin glue.The orogastric tube and Shelby catheter were removed at the end the procedure. The patient tolerated the procedure well no complications. All sponges, needles, and instrument counts were correct at the end procedure. EBL was _100__cc. The patient was awakened and taken to recovery in stable and satisfactory condition. Implants None Estimated Blood Loss 100 Drains No Packing No Pathology Yes ( Right colon and appendix sent to pathology) Complications No immediate complications Condition Stable Disposition PACU [facility] Billing Surgery - Charge Forward: Surgery Billing
[2025-08-24] MEDS: POTASSIUM CHLORIDE 20 MEQ ER TABLET 40 MEQ PO (12:04)
--- NOTE | 2025-08-24 16:33 | PC.NURSE ---
1833: called to room note patient had blood stools on pad in bed, ambulated back to bathroom to toilet, and cont, to have loose bloody stools, bp 116/65.mr 92, call placed to oncall Dr. Ramirez to make aware , await return call,abd. soft, still with brusing, not much change in bruising since am assessment
--- NOTE | 2025-08-24 16:47 | PC.NURSE ---
183: Dr. Cano returned call updated on bloody stool, voiced not unuasual to have blood stools after a colectomy new order for stat H&H ordered.vs 116/65, 92, 18,
[2025-08-24 16:49] VITALS: BP 116/65; PULSE 92; RESP 18; O2SAT 93
[2025-08-24 17:41] LABS: Hematocrit 46.5 % (42.0-52.0); Hemoglobin 14.9 g/dL (14.0-18.0)
[2025-08-24 20:00] VITALS: BP 111/59; PULSE 80; RESP 20; TEMP 36.8; O2SAT 95
[2025-08-24] MEDS: ACETAMINOPHEN 500 MG TABLET 1000 MG PO (21:41)
[2025-08-25] VITALS: BP 116/64; PULSE 83; RESP 20; TEMP 37.2; O2SAT 94
[2025-08-25] MEDS: LACTATED RINGERS 1,000 ML 90 ML IV CONT (01:47)
[2025-08-25 04:00] VITALS: BP 129/58; PULSE 92; RESP 20; TEMP 36.7; O2SAT 92
--- NOTE | 2025-08-25 08:50 | P.PNGS_ITS ---
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 Status: Acute Assessment and Plan: doing well, continue routine postoperative care, will advance to diabetic diet, encourage PT/OT, out of bed, IS Subjective Subjective Date/Time Seen: 08/25/25 08:50 Interval history: feels pretty good, some bloody bowel movements yesterday Review of Systems 2 Review of Systems: All systems reviewed & are unremarkable except as noted in HPI and below Exam Const: General: cooperative, comfortable, no acute distress and ill appearing Resp: Auscultation: clear to auscultation bilaterally Cardio: Rate: regular rate Rhythm: regular rhythm GI: Inspection: normal to inspection, distended and incision GI Palp: Yes abdominal tenderness and Yes Soft to palpation Objective Data Vital Signs Vital Signs: Vital Signs - 24 hr 08/24/25 16:49 08/24/25 20:00 08/25/25 00:00 Temperature 36.8 C 37.2 C Pulse Rate 92 80 83 Respiratory Rate 18 20 20 Blood Pressure 116/65 111/59 L 116/64 Pulse Oximetry 93 95 94 08/25/25 04:00 Temperature 36.7 C Pulse Rate 92 Respiratory Rate 20 Blood Pressure 129/58 L Pulse Oximetry 92 Intake/Output Intake/Output: Intake & Output 08/22/25 08/23/25 08/24/25 08/25/25 23:59 23:59 23:59 23:59 Intake Total 500 3572 Balance 500 3572 Meds/Results Medications: Active Medications Generic Name Dose Route Start Last Admin Trade Name Freq PRN Reason Stop Dose Admin Acetaminophen 1,000 mg 08/23/25 19:57 08/24/25 21:41 Acetaminophen 500 Mg Tablet PO 1,000 mg Q6H PRN Administration Mild Pain (1-3) or Fever Hydrocodone Bitart/Acetaminophen 1 tab 08/23/25 19:57 08/24/25 04:09 Hydrocodone/Acetaminophen (*Crx) 5-325 Mg Tablet PO 1 tab Q4H PRN Administration Pain Rated 4-6 Alvimopan 12 mg 08/24/25 09:00 08/24/25 21:38 Alvimopan 12 Mg Capsule PO 08/25/25 09:01 12 mg Q12HR ERIC Administration Amlodipine Besylate 10 mg 08/24/25 09:00 12/20/25 08:56 Amlodipine Besylate 5 Mg Tablet BY MOUTH 10 mg DAILY ERIC Administration Chlorthalidone 12.5 mg 08/24/25 09:00 08/24/25 08:56 Chlorthalidone 12.5 Mg Tab PO 12.5 mg QAM ERIC Administration Dextrose 12.5 gm 08/23/25 17:42 Dextrose 50% 25 Gm/50 Ml Syringe IV PUSH PRN PRN Hypoglycemia Protocol Empagliflozin 25 mg 08/24/25 09:00 08/24/25 08:57 Empagliflozin 25 Mg Tablet BY MOUTH 25 mg DAILY ERIC Administration Enoxaparin Sodium 40 mg 08/24/25 09:00 08/24/25 08:57 Enoxaparin 40 Mg/0.4 Ml Syringe SUB-Q 40 mg DAILY ERIC Administration Glucagon 1 mg 08/23/25 17:42 Glucagon For Inj 1 Mg Vial IM PRN PRN Hypoglycemia Protocol Glucose 15 gm 08/23/25 17:42 Glucose Oral Gel 15 Gm Of Glucse In 37.5 Gm Tube PO PRN PRN Hypoglycemia Protocol Glyburide 5 mg 08/24/25 09:00 Glyburide 5 Mg Tablet PO DAILY ERIC Dextrose 1,000 mls @ 100 mls/hr 08/23/25 17:42 Dextrose 5% 1,000 Ml IVPB PRN PRN Hypoglycemia Protocol Ibuprofen 800 mg in 200 mls @ 400 mls/hr 08/23/25 19:57 Caldolor 800 Mg/200 Ml IVPB Q6H PRN Pain Rated 4-6 Lactated Ringer's 1,000 mls @ 90 mls/hr 08/23/25 19:57 08/25/25 01:47 Lr - Lactated Ringers Iv IV CONT 90 mls/hr .Q11H7M ERIC Administration Insulin Aspart 4 units 08/24/25 08:00 08/24/25 17:32 Insulin Aspart (*Bkc) 100 Units/Ml 0.05 units/kg (4 units) 4 units SUB-Q Administration [facility] Lidocaine 1 patch 08/24/25 09:00 08/24/25 08:57 Lidocaine 5% Patch TRANSDERM Not Given DAILY [facility] Miscellaneous Information 1 each 08/24/25 00:01 08/24/25 03:18 Clarify Glyburide Dose--Ordered As 5 Mg Daily. Med. Rec Comments State 2.5 Mg Daily. XX 09/23/25 00:00 Not Given [facility] Morphine Sulfate 4 mg 08/23/25 19:57 Morphine Sulfate (*Crx) 4 Mg/Ml Inj IV PUSH Q4H PRN Pain Rated 7-10 Morphine Sulfate 2 mg 08/23/25 19:57 Morphine Sulfate (*Crx) 4 Mg/Ml Inj IV PUSH Q4H PRN Pain Rated 4-6 Ondansetron HCl 4 mg 08/23/25 19:57 Ondansetron Inj 4 Mg/2 Ml Vial IV PUSH Q6H PRN Nausea And Vomiting Oxycodone HCl 5 mg 08/23/25 19:57 Oxycodone Hcl (*Crx) 5 Mg Tab Ir PO Q6H PRN Pain Rated 7-10 Pantoprazole Sodium 40 mg 08/24/25 09:00 08/24/25 08:58 Pantoprazole 40 Mg Tablet PO 40 mg QAM ERIC Administration Sitagliptin Phosphate 100 mg 08/24/25 09:00 08/24/25 08:58 Sitagliptin Phosphate 100 Mg Tablet PO 100 mg DAILY ERIC Administration Timolol Maleate 1 drop 08/23/25 21:00 08/24/25 21:38 Timolol Maleate 0.5% Op Soln 5 Ml Bottle EACH EYE 1 drop Q12H ERIC Administration Vitamin D 50 mcg 08/24/25 09:00 08/24/25 08:57 Cholecalciferol (Vitamin D3) 25 Mcg (1,000 Units) Tablet PO 50 mcg DAILY ERIC Administration Labs Labs: Laboratory Results - last 24 hr 08/24/25 08/24/25 08/24/25 11:41 16:55 17:22 Hgb 14.9 Hct 46.5 POC Capillary Glucose 294 H 187 H 08/24/25 08/25/25 22:11 07:38 Hgb Hct POC Capillary Glucose 131 H 106 H
[2025-08-25] MEDS: CHLORTHALIDONE 12.5 MG TAB PO (09:11)
[2025-08-25] MEDS: EMPAGLIFLOZIN 25 MG TABLET BY MOUTH (09:11)
[2025-08-25] MEDS: ALVIMOPAN 12 MG CAPSULE PO (09:11)
[2025-08-25] MEDS: PANTOPRAZOLE 40 MG TABLET PO (09:11)
[2025-08-25] MEDS: CHOLECALCIFEROL (VITAMIN D3) 25 MCG (1,000 UNITS) TABLET 50 MCG PO (09:11)
[2025-08-25] MEDS: TIMOLOL MALEATE 0.5% OP SOLN 5 ML BOTTLE 1 DROP EACH EYE (09:13)
[2025-08-25] MEDS: ENOXAPARIN 40 MG/0.4 ML SYRINGE SUB-Q (09:14)
--- OUTSIDE RECORDS SUMMARY | 2025-08-26 06:35 | XMS_ITS | Encounter Summary ---
Author Organization [facility] Address [address] [place] [address] Care Team Providers Care Head Kiln Operator Name Role Phone José Vogel MD Primary Care Provider [phone] Encounter Details Date Type Department Care Team (Late st Contact Info) Description 04/22/2022 Lab Requisition [facility] [address] [place] [id number] Gianluca Arias MD [address] [facility] [place] [address] Social History Tobacco Use Types Packs/Day Years [...] AM CDT) Case Report Dermatopathology Report Case: [id number] Authorizing Provider: Gianluca Arias MD Collected: 04/20/2022 03:33 AM Ordering Location: [facility] Received: 04/22/2022 07:00 AM Pathologist: Veda Jacinto MD Specimen: Skin, right upper mormonism 4:58 PM CDT DERMATOPATHOLOGY LABORATORY Final Diagnosis Specimen A. SKIN, right upper mormonism: SEBORRHEIC KERATOSIS, INFLAMED (L82.0) EPIDERMOID CYST WITH EVIDENCE OF RUPTURE (L72.0) DERMAL FIBROSIS (L90.5) (see microscopic description) 2 4:58 PM CDT DERMATOPATHOLOGY LABORATORY at 1658 CDT Clinical History SK vs. SCCA. Path# [id number] 2 4:58 PM CDT DERMATOPATHOLOGY LABORATORY Gross Description Specimen A: Received is one formalin filled container labeled with the patient's name and designated right upper mormonism. The specimen consists of a shave biopsy measuring 52m65m8gt. Jar 0. 2 4:58 PM CDT DERMATOPATHOLOGY LABORATORY Microscopic Description Specimen A. SKIN, right upper mormonism: There is hyperkeratosis, parakeratosis, papillomatosis, and acanthosis [...] determined by the Dermatopathology Laboratory at [facility], directed by Dr. Lucretia Castelan. These tests need not be, and therefore are not, approved by the [place] Food and Drug Administration. The tests are used for clinical purposes. Billing Codes Specimen Charges Stain Charges 27321 1 2 4:58 PM CDT DERMATOPATHOLOGY LABORATORY Embedded Images 2 4:58 PM CDT DERMATOPATHOLOGY LABORATORY Pathology/Cytolo gy TISSUE SPECIMEN FROM SKIN / Unknown 04/20/2022 3:33 AM CDT 04/22/2022 7:00 AM CDT us Gianluca Arias MD LAB - PATHOLOGY/CYTOLOGY ORDER PAYAL Final Result DERMATOPATHOLOGY LABORATORY [facility] - Department of Dermatology [address] [phone] documented in this encounter Visit Diagnoses Not on filedocumented in this encounter Care Teams Head Kiln Operator Relationship Specialty Start Date End Date José Vogel MD [address] [place] [address] PCP - General 01/28/22 documented as of this encounter
--- OUTSIDE RECORDS SUMMARY | 2025-08-26 06:35 | XMS_ITS | Clinical Summary ---
Author Organization [facility] [employer] Address [address] [place] [address] Care Team Providers Care Forest Fire Control Officer Name Role Phone José Vogel MD Primary Care Provider [phone] Source Comments [facility] [employer],non-owned Affiliates and Associated Physician Practices is amultiple site organization consisting of ambulatory clinics and hospital sitesin [place], [place], [place] and [place]. This disclosure is being madepursuant to the Care Everywhere program and may not contain all information available regarding this patient. Last updated 18.[facility] [employer] Social History Tobacco Use Types Packs/Day Years [...] MEDICARE MEDICARE SUPPLEMENT PAYOR GENERIC Care Teams Forest Fire Control Officer Relationship Specialty Start Date End Date José Vogel MD [address] [place] [address] PCP - General 01/28/22
--- OUTSIDE RECORDS SUMMARY | 2025-08-26 06:35 | XMS_ITS | Clinical Summary ---
Author Organization [facility] Address [facility] [place] [address] Care Team Providers Care Boat Tester Name Role Phone José Vogel MD Primary Care Provider [phone] Active Problems Problem Noted Date Diagnosed Date [...] patient's age to complete this topic Insurance [facility] Care Teams Boat Tester Relationship Specialty Start Date End Date José Vogel MD [address] [place] [address] PCP - General FAMILY PRACTICE 11/19/22
--- NOTE | 2025-08-28 16:28 | PM.DS ---
DS: Admitting Diagnosis Discharge Date 08/25/25 Admitting Diagnosis Invasive cecal adenocarcinoma DS: Discharge Diagnosis Discharge Diagnosis (1) Adenocarcinoma of cecum: Code(s): C18.0 - Malignant neoplasm of cecum Status: Acute DS: Summary Hospital Course Reason for hospitalization: Patient had a colonoscopy on 06/19/2025 that demonstrated a malignant-appearing colonic mass at the cecum. Pathology confirmed moderately differentiated adeno carcinoma. patient was seen in the general surgery office to discuss colectomy. He was scheduled for robotic assisted right hemicolectomy after cardiac clearance. Was seen by Dr. Swift and cleared for ssurgery. Admitted on 08/23/25 for scheduled surgery. Hospital Course: patient underwent robotic assisted laparoscopic right hemicolectomy with [id number] anti peristaltic stapled ileocolic anastomosis on 08/23/2025. He tolerated the procedure well. He was awakened and taken to recovery in stable and satisfactory condition. No acute events overnight. Postop day 1 he was doing well and advanced to a full liquid diet. The following day he continued to do well and he was advanced to a diabetic diet. Labs and vital signs remained stable. No acute events over the patient's hospital course. on 08/25/2025, patient was surgically stable for discharge as he was back to his baseline functioning level. Status at Discharge Overall status at discharge: patient is back to baseline Time Spent with Patient Time attestation: Total time spent providing and/or coordinating discharge services: Time spent: Less than 30 minutes Exam Const: General: comfortable and no acute distress Resp: Effort & Inspection: normal respiratory effort Cardio: Rate: regular rate GI: Inspection: non-distended GI Palp: Yes Soft to palpation and No Tenderness to palpation present (GI) Other: Incisions clean and dry with glue intact. Skin: General skin exam: normal color and no rashes or lesions noted Neuro: Sensory Exam: normal sensation Extrem: General: normal to inspection Psych: Mental Status: mental status grossly normal DS: Data Data Completed and Pending Completed studies during hospitalization: Pending at discharge 08/23/25 16:55 Surgical [PTH] Routine Labs on day of discharge: Laboratory Tests 08/24/25 17:22 08/24/25 05:09 Procedures/Treatments: Procedures Operation Date: 08/23/25 10:30 Actual Procedure Side Surgeon p Robotic Assisted Laparoscopic Right Hemicolectomy Right Isaac Becerra MD Discharge Plan Discharge Attending physician on discharge: Xochilt Cano Consulting providers: Hesham Garza Discharging Clinician: Catrachita Santana Patient Disposition: Home Activity: may shower Diet: regular Wound Care Instructions: follow printed instructions Discharge Instructions: ok to shower over incisions with soap and water do not pick at bioglue Patient Language: Moldovan Stand Alone Forms: General Discharge Instructions Follow-up/Referrals: Isaac Becerra MD [Physician, General Surgery] - 2 Weeks Discharge Medications: New hydrocodone-acetaminophen 5-325 mg tablet 1 tablet PO Q6H PRN (Reason: pain) Qty: 20 0RF Continued (DME) blood sugar diagnostic Strip See Rx Instructions .ROUTE .MEDSUPPLY Qty: 10 Rx Instructions: As directed nystatin 100,000 unit/gram powder 1 applic topical BID Qty: 60 1RF timolol maleate 0.5 % drops 1 drp EACH EYE Q12H cholecalciferol (vitamin D3) 50 mcg (2,000 unit) capsule 2,000 unit PO DAILY amlodipine 10 mg tablet See Rx Instructions .ROUTE .COMPLEX Qty: 90 3RF Dose Instruction: TAKE 1 TABLET BY MOUTH EVERY DAY Rx Instructions: TAKE 1 TABLET BY MOUTH EVERY DAY Jardiance 25 mg tablet See Rx Instructions .ROUTE .COMPLEX Qty: 90 3RF Dose Instruction: TAKE 1 TABLET BY MOUTH EVERY DAY Rx Instructions: TAKE 1 TABLET BY MOUTH EVERY DAY Januvia 100 mg tablet 100 mg PO DAILY Qty: 90 3RF chlorthalidone 25 mg tablet See Rx Instructions .ROUTE .COMPLEX Qty: 45 2RF Dose Instruction: TAKE 1/2 TABLET BY MOUTH EVERY DAY Rx Instructions: TAKE 1/2 TABLET BY MOUTH EVERY DAY glyburide 5 mg tablet 5 mg PO DAILY Qty: 90 1RF Patient Comments: TAKES 2.5 MG DAILY atorvastatin 20 mg tablet See Rx Instructions .ROUTE .COMPLEX Qty: 90 3RF Dose Instruction: TAKE 1 TABLET BY MOUTH EVERY DAY Rx Instructions: TAKE 1 TABLET BY MOUTH EVERY DAY metformin 1,000 mg tablet See Rx Instructions .ROUTE .COMPLEX Qty: 180 3RF Dose Instruction: TAKE 1 TABLET BY MOUTH TWICE A DAY Rx Instructions: TAKE 1 TABLET BY MOUTH TWICE A DAY fenofibrate 160 mg tablet See Rx Instructions .ROUTE .COMPLEX Qty: 90 2RF Dose Instruction: TAKE 1 TABLET BY MOUTH EVERY DAY Rx Instructions: TAKE 1 TABLET BY MOUTH EVERY DAY Discontinued metronidazole 500 mg tablet 500 mg PO .COMPLEX Qty: 3 0RF Rx Instructions: 500 mg orally at 1:00pm, 2:00pm, and 11:00pm the day before surgery; ciprofloxacin HCl 500 mg tablet 500 mg PO .COMPLEX Qty: 1 0RF Rx Instructions: 500 mg orally at 2:00pm the day before surgery; Date of admission: 08/23/25 08:40 Primary Care Provider: José Vogel Admitting Provider: Isaac Becerra Attending physician on admission: Xochilt Cano Condition: Improved
== END 2025-08-25 11:47 | disposition home or self-care (01) | DRG 331 ==
LOC: ANHSURGERY 08:41 → ANH3MEDSUR 08-25 11:28 → ANHSURGERY 08-26 06:33 → ANH3MEDSUR 08-26 06:34 → ANHSURGERY 08-26 06:36 → ANH3MEDSUR 08-27 11:02
PROVIDERS: Admitting Provider Surgery; PCP Family Medicine; Visit Provider Surgery
PROC: 0DTF4ZZ Resection of Right Large Intestine, Percutaneous Endoscopic Approach (ICD-10-PCS; principal; 2025-08-23 10:30)
DX: C18.0 Malignant neoplasm of cecum (principal); E11.65 Type 2 diabetes mellitus with hyperglycemia; E11.42 Type 2 diabetes mellitus with diabetic polyneuropathy; I48.91 Unspecified atrial fibrillation; I10 Essential (primary) hypertension; E78.00 Pure hypercholesterolemia, unspecified; F10.90 Alcohol use, unspecified, uncomplicated; F17.210 Nicotine dependence, cigarettes, uncomplicated; Z79.84 Long term (current) use of oral hypoglycemic drugs; Z86.0100 Personal history of colon polyps, unspecified
CPT/HCPCS: 36415; 80053; 82948; 85014; 85018; 85025; 88309; 94640; J0690; A9270; J1100; J1171; J1650; J1815; J1836; J1885; J2003; J2004; J2405; J2704; J3010; J7030; J7120